=== PATIENT | male | born 1940 | race Caucasian/White ===

== ENCOUNTER → 2023-11-20 08:50 | Day surgery (SDC) | payer MEDICARE, BC, SELFPAY ==
[2023-11-20 10:57] VITALS: BMI 27.2
== END ==
LOC: CATH 08:50
PROVIDERS: ATTENDING PHYSICIAN Internal Medicine Cardiovascular Disease; FAMILY PHYSICIAN Internal Medicine Geriatric Medicine; OTHER PHYSICIAN Internal Medicine Cardiovascular Disease
DX: I48.0 Paroxysmal atrial fibrillation (principal); I47.19 Other supraventricular tachycardia; I34.0 Nonrheumatic mitral (valve) insufficiency; I13.0 Hypertensive heart and chronic kidney disease with heart failure and stage 1 through stage 4 chronic kidney disease, or unspecified chronic kidney disease; I50.32 Chronic diastolic (congestive) heart failure; N18.32 Chronic kidney disease, stage 3b; E78.2 Mixed hyperlipidemia; K21.9 Gastro-esophageal reflux disease without esophagitis; Z79.01 Long term (current) use of anticoagulants
CPT/HCPCS: 92960; 93005

== ENCOUNTER → 2023-12-26 09:42 | Outpatient (REF) | payer MEDICARE, BC, SELFPAY ==
[2023-12-26 10:09] LABS: % Basophils 0.6 % (0-2); % Eosinophils 2.9 % (0-6); % Immature Granulocytes 0.3 % (0-0.5); % Lymphocytes 19.6 % (20.5-51.1); % Monocytes 13.4 % (1.7-9.3); % Neutrophils 63.2 % (42.2-75.2); Absolute Eosinophils 0.2 10^3/uL (0-0.7); Absolute Lymphocytes 1.3 10^3/uL (1.2-3.4); Absolute Monocytes 0.9 10^3/uL (0.1-0.6); Absolute Neutrophils 4.2 10^3/uL (1.4-6.5); Hematocrit 35.3 % (39.0-52.0); Mean Corp Hgb Conc. 31.2 g/dL (33.0-37.0); Mean Corpuscular Hgb 30.4 pg (27.0-31.0); Mean Corpuscular Volume 97.5 fL (80.0-94.0); Mean Platelet Volume 10.8 fL (7.4-10.4); Nucleated Red Blood Cells % 0 % (-); Platelet Count 175 10^3/uL (130-400); Red Blood Cell Count 3.62 10^6/uL (4.70-6.10); Red Cell Dist. Width 16.8 % (11.5-14.5); White Blood Cell Count 6.6 10^3/uL (4.8-10.8)
[2023-12-26 11:00] LABS: ALT (SGPT) 14 U/L (0-50); AST (SGOT) 19 U/L (17-59); Albumin 3.6 g/dl (3.5-5.0); Alkaline Phosphatase 63 U/L (38-126); Blood Urea Nitrogen 41 mg/dl (9-20); Calcium 9.3 mg/dl (8.4-10.2); Carbon Dioxide 27 mmol/L (22-30); Chloride 104 mmol/L (98-107); Glucose 71 mg/dl (70-99); HDL Cholesterol 60 mg/dl; Iron 138 ug/dl (49-181); LDL Cholesterol, Calculated 62 mg/dl; Potassium 4.6 mmol/L (3.5-5.1); Sodium 140 mmol/L (135-145); Total Bilirubin 0.4 mg/dl (0.2-1.3); Total Cholesterol 149 mg/dl (50-199); Total Protein 6.3 g/dl (6.3-8.2); Triglyceride 135 mg/dl (10-149); Very Low Density Lipoprotein 27 mg/dl (0-30); eGFR 43.02
[2023-12-26 11:09] LABS: Percent Saturation 43 % (20-50); Total Iron Binding Capacity 318 ug/dl (261-462)
[2023-12-26 11:21] LABS: Ferritin 37.1 ng/ml (17.9-464.0)
== END ==
LOC: REG 09:42
PROVIDERS: ATTENDING PHYSICIAN Internal Medicine Geriatric Medicine
DX: E78.2 Mixed hyperlipidemia (principal); I10 Essential (primary) hypertension; E55.9 Vitamin D deficiency, unspecified; N20.0 Calculus of kidney; J45.20 Mild intermittent asthma, uncomplicated; K21.9 Gastro-esophageal reflux disease without esophagitis; G47.00 Insomnia, unspecified; I50.32 Chronic diastolic (congestive) heart failure; R00.2 Palpitations; Z13.31 Encounter for screening for depression; R94.4 Abnormal results of kidney function studies; N40.0 Benign prostatic hyperplasia without lower urinary tract symptoms; I48.0 Paroxysmal atrial fibrillation; E53.8 Deficiency of other specified B group vitamins
CPT/HCPCS: 36415; 80053; 80061; 82728; 83540; 83550; 85025

== ENCOUNTER → 2024-01-10 08:02 | Outpatient (REF) | payer MEDICARE, BC, SELFPAY | LOC: DHCBC/DCA 08:02 | PROVIDERS: ATTENDING PHYSICIAN Nurse Practitioner; FAMILY PHYSICIAN Internal Medicine Geriatric Medicine | DX: I48.0 Paroxysmal atrial fibrillation (principal) | CPT/HCPCS: 78452; 93017; A9500; J2785 ==

== ENCOUNTER → 2024-02-14 11:10 | Outpatient (REF) | payer MEDICARE, BC, SELFPAY ==
[2024-02-14 20:02] LABS: Urine Albumin Trace (Neg - Trace); Urine Bilirubin Negative (Negative); Urine Character Clear (Clear); Urine Glucose Negative (Negative); Urine Ketone Negative (Negative); Urine Leukocyte 2+ (Negative); Urine Nitrite Negative (Negative); Urine Occult Blood 4+ (Negative); Urine Specific Gravity 1.005 (<1.030); Urine Urobilinogen Negative (Neg - 1+)
[2024-02-14 20:20] LABS: Urine Red Blood Cell 16-20 /HPF (0-2); Urine White Cell 90-100 /HPF (0-5)
[2024-02-14 20:21] LABS: Urine Bacteria Few (Negative)
== END ==
LOC: DHCBS MAIN 11:10
PROVIDERS: ATTENDING PHYSICIAN Internal Medicine Cardiovascular Disease; FAMILY PHYSICIAN Internal Medicine Geriatric Medicine; REFERRING PHYSICIAN Specialist
DX: I34.0 Nonrheumatic mitral (valve) insufficiency (principal); N39.0 Urinary tract infection, site not specified
CPT/HCPCS: 81003; 81015; 87086; 93306

== ENCOUNTER → 2024-02-19 09:52 | Outpatient (REF) | payer MEDICARE, BC, SELFPAY ==
[2024-02-19 11:17] LABS: % Basophils 0.5 % (0-2); % Eosinophils 2.3 % (0-6); % Immature Granulocytes 0.4 % (0-0.5); % Lymphocytes 21.3 % (20.5-51.1); % Monocytes 11.2 % (1.7-9.3); % Neutrophils 64.3 % (42.2-75.2); Absolute Eosinophils 0.2 10^3/uL (0-0.7); Absolute Lymphocytes 1.6 10^3/uL (1.2-3.4); Absolute Monocytes 0.9 10^3/uL (0.1-0.6); Absolute Neutrophils 4.9 10^3/uL (1.4-6.5); Hematocrit 37.4 % (39.0-52.0); Hemoglobin 12.2 g/dL (13.0-18.0); Mean Corp Hgb Conc. 32.6 g/dL (33.0-37.0); Mean Corpuscular Hgb 32.2 pg (27.0-31.0); Mean Corpuscular Volume 98.7 fL (80.0-94.0); Mean Platelet Volume 10.3 fL (7.4-10.4); Nucleated Red Blood Cells % 0 % (-); Platelet Count 162 10^3/uL (130-400); Red Blood Cell Count 3.79 10^6/uL (4.70-6.10); Red Cell Dist. Width 15.6 % (11.5-14.5); White Blood Cell Count 7.7 10^3/uL (4.8-10.8)
[2024-02-19 12:43] LABS: ALT (SGPT) 15 U/L (0-50); AST (SGOT) 20 U/L (17-59); Albumin 4.3 g/dl (3.5-5.0); Alkaline Phosphatase 68 U/L (38-126); Blood Urea Nitrogen 31 mg/dl (9-20); Calcium 8.8 mg/dl (8.4-10.2); Carbon Dioxide 30 mmol/L (22-30); Chloride 101 mmol/L (98-107); Glucose 89 mg/dl (70-99); HDL Cholesterol 61 mg/dl; Iron 91 ug/dl (49-181); LDL Cholesterol, Calculated 67 mg/dl; Potassium 3.6 mmol/L (3.5-5.1); Sodium 137 mmol/L (135-145); Total Bilirubin 0.6 mg/dl (0.2-1.3); Total Cholesterol 171 mg/dl (50-199); Total Protein 6.7 g/dl (6.3-8.2); Triglyceride 216 mg/dl (10-149); Very Low Density Lipoprotein 43 mg/dl (0-30); eGFR 32.91
[2024-02-19 12:52] LABS: Percent Saturation 31 % (20-50); Total Iron Binding Capacity 291 ug/dl (261-462)
[2024-02-19 14:05] LABS: Free T4 0.95 ng/dl (0.78-2.19); Vitamin D, 25-OH*** 37.1 ng/mL (30-80)
[2024-02-19 14:22] LABS: Ferritin 57.2 ng/ml (17.9-464.0)
== END ==
LOC: REG 09:52
PROVIDERS: ATTENDING PHYSICIAN Internal Medicine Cardiovascular Disease; FAMILY PHYSICIAN Internal Medicine Geriatric Medicine; REFERRING PHYSICIAN Specialist
DX: E78.2 Mixed hyperlipidemia (principal); I10 Essential (primary) hypertension; E55.9 Vitamin D deficiency, unspecified; N20.0 Calculus of kidney; M81.0 Age-related osteoporosis without current pathological fracture; R00.0 Tachycardia, unspecified; J45.20 Mild intermittent asthma, uncomplicated; K21.9 Gastro-esophageal reflux disease without esophagitis; G47.00 Insomnia, unspecified; I50.32 Chronic diastolic (congestive) heart failure; Z13.31 Encounter for screening for depression; R94.4 Abnormal results of kidney function studies; N40.0 Benign prostatic hyperplasia without lower urinary tract symptoms; I48.0 Paroxysmal atrial fibrillation; E53.8 Deficiency of other specified B group vitamins
CPT/HCPCS: 36415; 80053; 80061; 82306; 82728; 83540; 83550; 84439; 84443; 85025

== ENCOUNTER → 2024-02-22 10:17 | Outpatient (REF) | payer MEDICARE, BC, SELFPAY | LOC: RAD 10:17 | PROVIDERS: ATTENDING PHYSICIAN Internal Medicine Cardiovascular Disease; FAMILY PHYSICIAN Internal Medicine Geriatric Medicine | DX: I48.0 Paroxysmal atrial fibrillation (principal) | CPT/HCPCS: 71046 ==

== ENCOUNTER → 2024-03-06 10:16 | Outpatient (REF) | payer MEDICARE, BC, SELFPAY ==
[2024-03-06 11:19] LABS: % Basophils 0.2 % (0-2); % Eosinophils 0.9 % (0-6); % Immature Granulocytes 0.9 % (0-0.5); % Monocytes 12.6 % (1.7-9.3); % Neutrophils 72.4 % (42.2-75.2); Absolute Eosinophils 0.1 10^3/uL (0-0.7); Absolute Immature Granulocytes 0.1 10^3/uL (0-0.05); Absolute Lymphocytes 1.4 10^3/uL (1.2-3.4); Absolute Monocytes 1.4 10^3/uL (0.1-0.6); Absolute Neutrophils 7.9 10^3/uL (1.4-6.5); Hematocrit 37.5 % (39.0-52.0); Hemoglobin 12.5 g/dL (13.0-18.0); Mean Corp Hgb Conc. 33.3 g/dL (33.0-37.0); Mean Corpuscular Hgb 32.1 pg (27.0-31.0); Mean Corpuscular Volume 96.4 fL (80.0-94.0); Mean Platelet Volume 10.7 fL (7.4-10.4); Nucleated Red Blood Cells % 0 % (-); Platelet Count 190 10^3/uL (130-400); Red Blood Cell Count 3.89 10^6/uL (4.70-6.10); Red Cell Dist. Width 15.5 % (11.5-14.5); White Blood Cell Count 10.9 10^3/uL (4.8-10.8)
[2024-03-06 12:02] LABS: Urine Albumin 1+ (Neg - Trace); Urine Bilirubin Negative (Negative); Urine Character Very Cloudy (Clear); Urine Glucose Negative (Negative); Urine Ketone Negative (Negative); Urine Leukocyte 2+ (Negative); Urine Nitrite Negative (Negative); Urine Occult Blood 2+ (Negative); Urine Urobilinogen Negative (Neg - 1+)
[2024-03-06 12:09] LABS: Urine Bacteria Few (Negative); Urine Red Blood Cell 0-2 /HPF (0-2); Urine Squamous Cell 0-2 /LPF (Few); Urine White Cell 50-60 /HPF (0-5)
[2024-03-06 12:33] LABS: ALT (SGPT) 22 U/L (0-50); AST (SGOT) 23 U/L (17-59); Albumin 4.1 g/dl (3.5-5.0); Alkaline Phosphatase 84 U/L (38-126); Blood Urea Nitrogen 34 mg/dl (9-20); Calcium 9.7 mg/dl (8.4-10.2); Carbon Dioxide 29 mmol/L (22-30); Chloride 98 mmol/L (98-107); Glucose 93 mg/dl (70-99); HDL Cholesterol 75 mg/dl; Iron 40 ug/dl (49-181); LDL Cholesterol, Calculated 60 mg/dl; Sodium 134 mmol/L (135-145); Total Bilirubin 0.5 mg/dl (0.2-1.3); Total Cholesterol 162 mg/dl (50-199); Total Protein 6.7 g/dl (6.3-8.2); Triglyceride 139 mg/dl (10-149); Very Low Density Lipoprotein 27 mg/dl (0-30); eGFR 37.35
[2024-03-06 12:46] LABS: Percent Saturation 14 % (20-50); Total Iron Binding Capacity 268 ug/dl (261-462)
[2024-03-06 12:51] LABS: Free T4 1.26 ng/dl (0.78-2.19); Vitamin D, 25-OH*** 42.6 ng/mL (30-80)
[2024-03-06 13:04] LABS: TSH 7.57 uIU/ml (0.47-4.68)
== END ==
LOC: REG 10:16
PROVIDERS: ATTENDING PHYSICIAN Internal Medicine Geriatric Medicine
DX: E78.2 Mixed hyperlipidemia (principal); I10 Essential (primary) hypertension; E55.9 Vitamin D deficiency, unspecified; N20.0 Calculus of kidney; M81.0 Age-related osteoporosis without current pathological fracture; R00.0 Tachycardia, unspecified; J45.20 Mild intermittent asthma, uncomplicated; K21.9 Gastro-esophageal reflux disease without esophagitis; G47.00 Insomnia, unspecified; I50.32 Chronic diastolic (congestive) heart failure; R00.2 Palpitations; Z13.31 Encounter for screening for depression; R94.4 Abnormal results of kidney function studies; N40.0 Benign prostatic hyperplasia without lower urinary tract symptoms; I48.0 Paroxysmal atrial fibrillation; E53.8 Deficiency of other specified B group vitamins
CPT/HCPCS: 36415; 80053; 80061; 81003; 81015; 82306; 82728; 83540; 83550; 84439; 84443; 85025

== ENCOUNTER → 2024-03-13 17:13 | Outpatient (REF) | payer MEDICARE, BC, SELFPAY ==
[2024-03-13 17:51] LABS: Urine Albumin 1+ (Neg - Trace); Urine Bilirubin Negative (Negative); Urine Character Very Cloudy (Clear); Urine Glucose Negative (Negative); Urine Ketone Negative (Negative); Urine Leukocyte 2+ (Negative); Urine Nitrite Negative (Negative); Urine Occult Blood 2+ (Negative); Urine Urobilinogen Negative (Neg - 1+); Urine pH 6.5 (5.0-9.0)
[2024-03-13 18:02] LABS: Urine Squamous Cell 0-2 /LPF (Few)
[2024-03-13 18:03] LABS: Urine Bacteria Few (Negative); Urine White Cell >100 /HPF (0-5)
== END ==
LOC: CLAB 17:13
PROVIDERS: ATTENDING PHYSICIAN Specialist; FAMILY PHYSICIAN Internal Medicine Geriatric Medicine
DX: N39.0 Urinary tract infection, site not specified (principal)
CPT/HCPCS: 81003; 81015; 87086

== ENCOUNTER → 2024-03-18 08:39 | Outpatient (REF) | payer MEDICARE, BC, SELFPAY | LOC: RCS 08:39 | PROVIDERS: ATTENDING PHYSICIAN Internal Medicine Cardiovascular Disease; FAMILY PHYSICIAN Internal Medicine Geriatric Medicine | DX: I48.0 Paroxysmal atrial fibrillation (principal); I10 Essential (primary) hypertension; I50.32 Chronic diastolic (congestive) heart failure; I34.0 Nonrheumatic mitral (valve) insufficiency | CPT/HCPCS: 93306; 93356 ==

== ENCOUNTER → 2024-03-26 10:27 | Outpatient (REF) | payer MEDICARE, BC, SELFPAY ==
[2024-03-26 11:29] LABS: Urine Albumin Trace (Neg - Trace); Urine Bilirubin Negative (Negative); Urine Character Slightly Cloudy (Clear); Urine Glucose Negative (Negative); Urine Ketone Negative (Negative); Urine Leukocyte 2+ (Negative); Urine Nitrite Negative (Negative); Urine Occult Blood 1+ (Negative); Urine Urobilinogen Negative (Neg - 1+); Urine pH 6.5 (5.0-9.0)
[2024-03-26 12:28] LABS: Urine Bacteria Moderate (Negative); Urine White Cell 50-60 /HPF (0-5)
[2024-03-28 15:53] LABS: 24 Hour Urine Total Volume Random mL; Albumin 3.87 g/dL (3.75-5.01); Alpha 1 Globulin 0.35 g/dL (0.19-0.46); Free Kappa Light Chains,Quant 28.97 mg/L (3.30-19.40); Free Lambda Light Chains,Quant 21.61 mg/L (5.71-26.30); IgA 275 mg/dL (68-408); IgG 721 mg/dL (768-1632); IgM 52 mg/dL (35-263); Immunofixation Electrophoresis IFE Done; Kappa/Lambda Fr Light Ratio 1.34 (0.26-1.65); Total Protein-Electrophoresis 6.9 g/dL (6.3-8.2); Urine Collection Length Random hr; Urine Free Lambda Light Chains 7.51 mg/L (0.00-3.79)
== END ==
LOC: REG 10:27
PROVIDERS: Urology; ATTENDING PHYSICIAN Internal Medicine Cardiovascular Disease; FAMILY PHYSICIAN Internal Medicine Geriatric Medicine
DX: I50.32 Chronic diastolic (congestive) heart failure (principal); N39.0 Urinary tract infection, site not specified
CPT/HCPCS: 81003; 81015; 82784; 83521; 84155; 84156; 84165; 86334; 86335; 87086

== ENCOUNTER → 2024-04-03 11:00 | Outpatient (REF) | payer MEDICARE, BC, SELFPAY ==
[2024-04-03 12:20] LABS: % Basophils 0.5 % (0-2); % Eosinophils 0.6 % (0-6); % Immature Granulocytes 0.9 % (0-0.5); % Lymphocytes 15.7 % (20.5-51.1); % Monocytes 7.7 % (1.7-9.3); % Neutrophils 74.6 % (42.2-75.2); Absolute Eosinophils 0.1 10^3/uL (0-0.7); Absolute Immature Granulocytes 0.1 10^3/uL (0-0.05); Absolute Lymphocytes 1.3 10^3/uL (1.2-3.4); Absolute Monocytes 0.6 10^3/uL (0.1-0.6); Absolute Neutrophils 6.1 10^3/uL (1.4-6.5); Hematocrit 35.2 % (39.0-52.0); Hemoglobin 11.3 g/dL (13.0-18.0); Mean Corp Hgb Conc. 32.1 g/dL (33.0-37.0); Mean Corpuscular Hgb 32.7 pg (27.0-31.0); Mean Corpuscular Volume 101.7 fL (80.0-94.0); Mean Platelet Volume 10.4 fL (7.4-10.4); Nucleated Red Blood Cells % 0 % (-); Platelet Count 189 10^3/uL (130-400); Red Blood Cell Count 3.46 10^6/uL (4.70-6.10); White Blood Cell Count 8.2 10^3/uL (4.8-10.8)
[2024-04-03 12:58] LABS: ALT (SGPT) 20 U/L (0-50); AST (SGOT) 24 U/L (17-59); Albumin 4.1 g/dl (3.5-5.0); Alkaline Phosphatase 78 U/L (38-126); Blood Urea Nitrogen 29 mg/dl (9-20); Calcium 9.3 mg/dl (8.4-10.2); Carbon Dioxide 27 mmol/L (22-30); Chloride 104 mmol/L (98-107); Glucose 95 mg/dl (70-99); Iron 98 ug/dl (49-181); Potassium 4.3 mmol/L (3.5-5.1); Sodium 140 mmol/L (135-145); Total Bilirubin 0.6 mg/dl (0.2-1.3); Total Protein 6.6 g/dl (6.3-8.2); eGFR 46.48
[2024-04-03 13:08] LABS: Percent Saturation 34 % (20-50); Total Iron Binding Capacity 284 ug/dl (261-462)
[2024-04-03 13:09] LABS: TSH 7.06 uIU/ml (0.47-4.68)
== END ==
LOC: REG 11:00
PROVIDERS: ATTENDING PHYSICIAN Internal Medicine Geriatric Medicine
DX: I10 Essential (primary) hypertension (principal); D64.9 Anemia, unspecified
CPT/HCPCS: 36415; 80053; 82728; 83540; 83550; 84443; 85025

== ENCOUNTER → 2024-04-10 06:23 | Day surgery (SDC) | payer MEDICARE, BC, SELFPAY | LOC: GI 06:23 | PROVIDERS: ATTENDING PHYSICIAN Internal Medicine Gastroenterology; FAMILY PHYSICIAN Internal Medicine Geriatric Medicine | DX: D50.0 Iron deficiency anemia secondary to blood loss (chronic) (principal); R12 Heartburn; R19.5 Other fecal abnormalities; Z79.01 Long term (current) use of anticoagulants | CPT/HCPCS: 43235 ==

== ENCOUNTER → 2024-04-15 09:36 | Outpatient (REF) | payer MEDICARE, BC, SELFPAY | LOC: RAD 09:36 | PROVIDERS: ATTENDING PHYSICIAN Internal Medicine Cardiovascular Disease; FAMILY PHYSICIAN Internal Medicine Geriatric Medicine | DX: I48.0 Paroxysmal atrial fibrillation (principal); I42.9 Cardiomyopathy, unspecified; I50.32 Chronic diastolic (congestive) heart failure | CPT/HCPCS: 78803; A9538 ==

== ENCOUNTER → 2024-05-05 08:49 | Outpatient (REF) | payer MEDICARE, BC, SELFPAY ==
[2024-05-05 09:55] LABS: % Basophils 0.4 % (0-2); % Eosinophils 1.7 % (0-6); % Immature Granulocytes 1.1 % (0-0.5); % Lymphocytes 25.5 % (20.5-51.1); % Monocytes 10.6 % (1.7-9.3); % Neutrophils 60.7 % (42.2-75.2); Absolute Eosinophils 0.1 10^3/uL (0-0.7); Absolute Immature Granulocytes 0.1 10^3/uL (0-0.05); Absolute Lymphocytes 1.8 10^3/uL (1.2-3.4); Absolute Monocytes 0.8 10^3/uL (0.1-0.6); Absolute Neutrophils 4.4 10^3/uL (1.4-6.5); Hematocrit 36.4 % (39.0-52.0); Hemoglobin 11.7 g/dL (13.0-18.0); Mean Corp Hgb Conc. 32.1 g/dL (33.0-37.0); Mean Corpuscular Hgb 33.5 pg (27.0-31.0); Mean Corpuscular Volume 104.3 fL (80.0-94.0); Nucleated Red Blood Cells % 0 % (-); Platelet Count 175 10^3/uL (130-400); Red Blood Cell Count 3.49 10^6/uL (4.70-6.10); Red Cell Dist. Width 14.7 % (11.5-14.5); White Blood Cell Count 7.2 10^3/uL (4.8-10.8)
[2024-05-05 10:24] LABS: ALT (SGPT) 20 U/L (0-50); AST (SGOT) 23 U/L (17-59); Albumin 4.3 g/dl (3.5-5.0); Alkaline Phosphatase 77 U/L (38-126); Blood Urea Nitrogen 31 mg/dl (9-20); Calcium 9.7 mg/dl (8.4-10.2); Carbon Dioxide 28 mmol/L (22-30); Chloride 104 mmol/L (98-107); Glucose 90 mg/dl (70-99); HDL Cholesterol 79 mg/dl; LDL Cholesterol, Calculated 69 mg/dl; Potassium 4.2 mmol/L (3.5-5.1); Sodium 140 mmol/L (135-145); Total Bilirubin 0.4 mg/dl (0.2-1.3); Total Cholesterol 180 mg/dl (50-199); Total Protein 6.5 g/dl (6.3-8.2); Triglyceride 163 mg/dl (10-149); Very Low Density Lipoprotein 32 mg/dl (0-30); eGFR 50.18
[2024-05-05 10:29] LABS: NT-proBNP 364 pg/ml
[2024-05-05 10:45] LABS: Vitamin D, 25-OH*** 39.3 ng/mL (30-80)
[2024-05-05 10:59] LABS: TSH 9.04 uIU/ml (0.47-4.68)
== END ==
LOC: REG 08:49
PROVIDERS: ATTENDING PHYSICIAN Internal Medicine Gastroenterology; FAMILY PHYSICIAN Internal Medicine Geriatric Medicine
DX: D64.9 Anemia, unspecified (principal); Z74.09 Other reduced mobility; E78.2 Mixed hyperlipidemia; I10 Essential (primary) hypertension; E55.9 Vitamin D deficiency, unspecified; N20.0 Calculus of kidney; M81.0 Age-related osteoporosis without current pathological fracture
CPT/HCPCS: 36415; 80053; 80061; 82306; 83880; 84443; 85025

== ENCOUNTER → 2024-05-07 13:13 | Outpatient (REF) | payer MEDICARE, BC, SELFPAY | LOC: HWRAD 13:13 | PROVIDERS: ATTENDING PHYSICIAN Specialist; FAMILY PHYSICIAN Internal Medicine Geriatric Medicine | DX: M54.16 Radiculopathy, lumbar region (principal) | CPT/HCPCS: 72131 ==

== ENCOUNTER → 2024-05-23 16:08 | Outpatient (REF) | payer MEDICARE, BC, SELFPAY ==
[2024-05-23 18:24] LABS: TSH 4.59 uIU/ml (0.47-4.68)
== END ==
LOC: REG 16:08
PROVIDERS: ATTENDING PHYSICIAN Internal Medicine Geriatric Medicine
DX: E78.2 Mixed hyperlipidemia (principal); I10 Essential (primary) hypertension; E55.9 Vitamin D deficiency, unspecified; N20.0 Calculus of kidney; M81.0 Age-related osteoporosis without current pathological fracture; R00.0 Tachycardia, unspecified; J45.20 Mild intermittent asthma, uncomplicated; K21.9 Gastro-esophageal reflux disease without esophagitis; G47.00 Insomnia, unspecified; I50.32 Chronic diastolic (congestive) heart failure; R00.2 Palpitations; Z13.89 Encounter for screening for other disorder; R94.4 Abnormal results of kidney function studies; N40.0 Benign prostatic hyperplasia without lower urinary tract symptoms; I48.0 Paroxysmal atrial fibrillation; E53.8 Deficiency of other specified B group vitamins; E03.2 Hypothyroidism due to medicaments and other exogenous substances
CPT/HCPCS: 36415; 84443

== ENCOUNTER 2024-05-27 08:21 | Day surgery (SDC) | payer MEDICARE, BC, SELFPAY ==
--- NOTE | 2024-05-27 11:06 | ITS.CL.CARDI ---
[employer] - Cardioversion
Cardioversion
Procedure Report:
Procedure: Direct current electrical cardioversion
Pre-operative diagnosis: Persistent atrial flutter
Post-operative diagnosis: Persistent atrial flutter status post DC cardioversion to sinus rhythm
Anesthesia: MAC
Attending Physician: Mik Soriano MD
Procedure Description: The patient was brought to the electrophysiology laboratory in the fasting state. Adherence to anticoagulation regimen was confirmed. Informed consent was obtained from the patient prior to the start of the procedure.
Electrodes were placed on the patient and connected to an external defibrillator. Monitoring of blood pressure, ECG tracings, and pulse oximetry was initiated. The pads were applied to the patient in the anterior and posterior positions. The patient
was sedated by the anesthesiologist. A 50 joule biphasic synchronized shock was delivered to the patient under MAC anesthesia. Sinus rhythm was successfully restored. The patient recovered uneventfully from MAC anesthesia. There were no immediate
post-procedure complications. The patient left the lab in good condition. The attending physician was present throughout the entire procedure.
Impression: Successful direct current cardioversion with bahai of sinus rhythm after one 50 joule biphasic synchronized shock.
== END 2024-05-27 11:32 | disposition home or self-care (01) ==
LOC: CATH 08:21
PROVIDERS: ATTENDING PHYSICIAN Nuclear Medicine Nuclear Cardiology; FAMILY PHYSICIAN Internal Medicine Geriatric Medicine; OTHER PHYSICIAN Internal Medicine Cardiovascular Disease
DX: I48.92 Unspecified atrial flutter (principal); I48.0 Paroxysmal atrial fibrillation; I13.0 Hypertensive heart and chronic kidney disease with heart failure and stage 1 through stage 4 chronic kidney disease, or unspecified chronic kidney disease; I50.32 Chronic diastolic (congestive) heart failure; N18.30 Chronic kidney disease, stage 3 unspecified; K21.9 Gastro-esophageal reflux disease without esophagitis; E78.5 Hyperlipidemia, unspecified; G47.33 Obstructive sleep apnea (adult) (pediatric); Z79.01 Long term (current) use of anticoagulants
CPT/HCPCS: 92960; 93005

== ENCOUNTER → 2024-06-02 08:54 | Outpatient (REF) | payer MEDICARE, BC, SELFPAY ==
[2024-06-02 11:05] LABS: % Basophils 0.4 % (0-2); % Eosinophils 2.5 % (0-6); % Immature Granulocytes 1.1 % (0-0.5); % Lymphocytes 18.1 % (20.5-51.1); % Monocytes 10.9 % (1.7-9.3); Absolute Eosinophils 0.2 10^3/uL (0-0.7); Absolute Immature Granulocytes 0.1 10^3/uL (0-0.05); Absolute Lymphocytes 1.5 10^3/uL (1.2-3.4); Absolute Monocytes 0.9 10^3/uL (0.1-0.6); Absolute Neutrophils 5.7 10^3/uL (1.4-6.5); Hematocrit 34.4 % (39.0-52.0); Hemoglobin 11.5 g/dL (13.0-18.0); Mean Corp Hgb Conc. 33.4 g/dL (33.0-37.0); Mean Corpuscular Hgb 34.2 pg (27.0-31.0); Mean Corpuscular Volume 102.4 fL (80.0-94.0); Mean Platelet Volume 10.2 fL (7.4-10.4); Nucleated Red Blood Cells % 0 % (-); Platelet Count 207 10^3/uL (130-400); Red Blood Cell Count 3.36 10^6/uL (4.70-6.10); Red Cell Dist. Width 13.7 % (11.5-14.5); White Blood Cell Count 8.4 10^3/uL (4.8-10.8)
[2024-06-02 11:24] LABS: NT-proBNP 503 pg/ml
[2024-06-02 12:32] LABS: ALT (SGPT) 20 U/L (0-50); AST (SGOT) 25 U/L (17-59); Albumin 4.3 g/dl (3.5-5.0); Alkaline Phosphatase 74 U/L (38-126); Blood Urea Nitrogen 31 mg/dl (9-20); Calcium 9.6 mg/dl (8.4-10.2); Carbon Dioxide 26 mmol/L (22-30); Chloride 103 mmol/L (98-107); Glucose 88 mg/dl (70-99); HDL Cholesterol 64 mg/dl; LDL Cholesterol, Calculated 70 mg/dl; Potassium 4.7 mmol/L (3.5-5.1); Sodium 138 mmol/L (135-145); Total Bilirubin 0.6 mg/dl (0.2-1.3); Total Cholesterol 177 mg/dl (50-199); Total Protein 6.5 g/dl (6.3-8.2); Triglyceride 217 mg/dl (10-149); Very Low Density Lipoprotein 43 mg/dl (0-30); eGFR 54.85
[2024-06-02 13:03] LABS: Free T4 1.58 ng/dl (0.78-2.19); Vitamin D, 25-OH*** 41.6 ng/mL (30-80)
== END ==
LOC: REG 08:54
PROVIDERS: ATTENDING PHYSICIAN Internal Medicine Geriatric Medicine
DX: Z74.09 Other reduced mobility (principal); E78.2 Mixed hyperlipidemia; I10 Essential (primary) hypertension; E55.9 Vitamin D deficiency, unspecified; N20.0 Calculus of kidney; M81.0 Age-related osteoporosis without current pathological fracture; R00.0 Tachycardia, unspecified; R94.4 Abnormal results of kidney function studies; N40.0 Benign prostatic hyperplasia without lower urinary tract symptoms; I48.0 Paroxysmal atrial fibrillation; E53.8 Deficiency of other specified B group vitamins; E03.2 Hypothyroidism due to medicaments and other exogenous substances; Z79.899 Other long term (current) drug therapy
CPT/HCPCS: 36415; 80053; 80061; 82306; 83880; 84439; 85025

== ENCOUNTER 2024-06-20 15:34 | Emergency (ER) | payer MEDICARE, BC, SELFPAY ==
[2024-06-20 15:42] VITALS: BP 159/78
--- NOTE | 2024-06-20 17:55 | EDRN ---
Dr. Patricia in room w /pt at this time/
--- NOTE | 2024-06-20 18:06 | EDRN ---
Pt was able to get up out of w/c and walk w/ very small steps from inside P2 to door jam of P1 and turn around and walk back and sit back down w/out assist of this RN or a walker.
[2024-06-20 18:12] VITALS: BP 182/88
--- NOTE | 2024-06-20 18:14 | ED.GENMED ---
History of Present Illness
General
Chief Complaint: Musculo-Skeletal Complaint
Source: patient
Time Seen by Provider: 06/20/24 17:37
History of Present Illness
History of Present Illness:
84-year-old male presents after a fall. Patient was getting his mail when he tripped going over a curb. He initially had significant low back pain. Patient has history of chronic back pain for which he has been receiving epidural injections.
Patient is pain has improved while waiting here in the emergency room. He denies any head injury. He denies any nausea or vomiting at this time.
Past History
Past History
ED Past Medical History: HTN, Hypercholesterolemia and Other (PNA, GI bleeding due to Ulcers, renal calculus, Autoimmune disorder)
ED Past Surgical History: Orthopedic and Urological
Patient has exhibited threatening behavior?: No
PSI?: No
Social History
Tobacco: Non-smoker
Alcohol: Occasional
Personal:
Living: with family
Family History
Family History: Negative Diabetes, Hypertension or CAD
Phy Exam
Physical Exam
Physical Exam:
General: Awake, Alert, appears stated age but in no distress
Vitals: unremarkable
Head: Atraumatic
Eyes: Pupils equal, EOMI
Throat: Airway intact, no exudates
Neck: Trachea midline
Lungs: Clear and equal b/l
Heart: Regular rate, no murmurs
Abd: Soft, Nontender, No pulsatile mass
Back: No midline tenderness to palpation
Neuro: Grossly nonfocal
Skin: Warm, dry, no rash
Extremities: pulses equal b/l, no edema
Course
Orders/Labs/Results
Orders:
Orders
06/20/24 15:45
CR Lumbar Spine Comp Min 4 Vw* Urgent
Comment:
Reason For Exam: injury
Vital Signs
Initial and Last Documented VS:
Initial Vital Signs
Temp Pulse Resp BP Pulse Ox
98.3 F 73 18 159/78 98
06/20/24 15:42 06/20/24 15:42 06/20/24 15:42 06/20/24 15:42 06/20/24 15:42
Last Documented Vital Signs
Temp Pulse Resp BP Pulse Ox
98.3 F 68 16 182/88 100
06/20/24 15:42 06/20/24 18:12 06/20/24 18:12 06/20/24 18:12 06/20/24 18:12
MDM/Problems Addressed
Differential Diagnosis Includes:
Compression fracture, muscle spasm, contusion
MDM/Problems Addressed:
Patient's lumbar spine films are unremarkable. Clinically is feeling much better. He has no focal weakness. Patient stable for discharge home with analgesia.
*Radiology
Radiology exam reviewed: preliminary read by ED provider (Personally viewed the patient's lumbar spine films and see no acute disease)
*Pulse Oximetry
Patient hypoxic: no
*Critical Care Note
Total Time (30-74mins, 75-104mins- exclusive of procedures): Not Applicable
ED Attending Note
-
Portions of this chart may have been created with voice recognition software.� Occasional wrong word or��sound alike� substitutions may have occurred due to the inherent limitations of voice recognition software.
Discharge Plan
Departure
Patient Disposition: Home (Routine Discharge)
Date of Disposition: 06/20/24
Time of Disposition: 18:14
Patient with high blood pressure during this ER visit?: Yes
Condition: Good
Discharge Problem:
mechanical fall, Low back strain
Instructions: Low Back Pain ED
Prescriptions:
New
oxycodone 5 mg tablet
5 mg PO Q6H PRN (Reason: Pain) Qty: 12 0RF
No Action
atorvastatin 10 MG tablet
10 mg PO DAILY
calcium carbonate [Calcium 600] 600 MG tablet
600 mg PO TID
vitamin B complex Tablet
1 tab PO QPM
albuterol sulfate 90 mcg/actuation Hfa Aerosol Inhaler
2 puff INHALATION R Q4HPRN PRN (Reason: sob/wheezing)
PreserVision AREDS-2 250-90-40-1 mg Capsule
1 tab PO BID
amlodipine 2.5 mg Tablet
2.5 mg PO HS
tamsulosin [Flomax] 0.4 mg Capsule
0.8 mg PO HS
pantoprazole [Protonix] 40 mg Tablet,Delayed Release (Dr/Ec)
40 mg PO BID
Saccharomyces boulardii [Florastor] 250 mg Capsule
250 mg PO BID
clobetasol 0.05 % Cream
1 applic TOPICAL DAILYPRN PRN (Reason: body rash)
dutasteride 0.5 mg Capsule
0.5 mg PO DAILY Qty: 0
psyllium husk 0.52 gram Capsule
0.52 g PO DAILYPRN PRN (Reason: constipation)
Prolia 60 mg/mL Syringe
60 mg SC [id number]
methen-sod phos-meth blue-hyos [Urogesic-Blue] 81.6-40.8-0.12 mg Tablet
1 tab PO QID
prednisone 2 mg Tablet,Delayed Release (Dr/Ec)
2 mg PO Q48H
prednisone 1 mg Tablet
3 mg PO Q48H
amiodarone 200 mg tablet
200 mg PO DAILY Qty: 30 11RF
Eliquis 2.5 mg Tablet
2.5 mg PO BID 30 Days Qty: 60 0RF
diazepam [Valium] 2 mg tablet
5 mg PO DAILY
B Complex Tablet Extended Release
1 tab PO DAILY
fexofenadine [Miya] 60 mg Tablet
60 mg PO BID PRN (Reason: itching)
fluticasone propion-salmeterol [Advair Diskus] 500-50 mcg/dose Blister With Device
1 inh INHALATION BID PRN (Reason: wheezing)
magnesium 200 mg Tablet
200 mg PO DAILY
furosemide [Lasix] 40 mg tablet
20 mg PO DAILY PRN (Reason: Fluid Retention/Swelling)
cranberry extract [Ellura] 200 mg Capsule
200 mg PO DAILY
Referrals:
UNKNOWN - PT DOES,NOT KNOW [Family Provider] -
Activity Restrictions/Additional Instructions:
[id number]
[address]
[place] [id number]
Follow up with your pain management doctor
Interventions
Interventions:
*Risk Screen - Suicide Last Done: 06/20/24 15:42
*General Assessment Last Done: 06/20/24 15:42
*Neglect/Abuse Screening Last Done: 06/20/24 15:42
ED- Fall Risk Assessment Last Done: 06/20/24 17:30
*ED COVID-19 Vaccine History Last Done: 06/20/24 17:23
*Nursing Disposition Last Done: 06/20/24 18:32
ED-Musculoskeletal Assessment Last Done: 06/20/24 17:29
Discharge Date and Time
Discharge Date/Time: 06/20/24 18:33
Print Language: DIVEHI
== END 2024-06-20 18:33 | disposition home or self-care (01) ==
LOC: EMR 15:34
PROVIDERS: EMERGENCY PHYSICIAN Emergency Medicine
DX: S39.012A Strain of muscle, fascia and tendon of lower back, initial encounter (principal); W10.1XXA Fall (on)(from) sidewalk curb, initial encounter; Y93.01 Activity, walking, marching and hiking; I10 Essential (primary) hypertension; E78.00 Pure hypercholesterolemia, unspecified; G89.29 Other chronic pain; M54.9 Dorsalgia, unspecified; D89.89 Other specified disorders involving the immune mechanism, not elsewhere classified; Z87.01 Personal history of pneumonia (recurrent); Z87.11 Personal history of peptic ulcer disease; Z87.442 Personal history of urinary calculi
CPT/HCPCS: 99283; 72110

== ENCOUNTER 2024-08-08 09:17 | Day surgery (SDC) | payer MEDICARE, BC, SELFPAY ==
[2024-08-08 10:49] VITALS: BMI 27.7
== END 2024-08-08 11:30 | disposition home or self-care (01) ==
LOC: CATH 09:17
PROVIDERS: ATTENDING PHYSICIAN Internal Medicine Cardiovascular Disease; FAMILY PHYSICIAN Internal Medicine Geriatric Medicine; OTHER PHYSICIAN Internal Medicine Cardiovascular Disease
DX: I48.0 Paroxysmal atrial fibrillation (principal); Z53.09 Procedure and treatment not carried out because of other contraindication; Z79.01 Long term (current) use of anticoagulants
CPT/HCPCS: 93005

== ENCOUNTER → 2024-08-19 09:20 | Outpatient (REF) | payer MEDICARE, BC, SELFPAY ==
[2024-08-19 10:39] LABS: % Basophils 0.4 % (0-2); % Eosinophils 0.8 % (0-6); % Immature Granulocytes 0.9 % (0-0.5); % Lymphocytes 14.8 % (20.5-51.1); % Monocytes 8.5 % (1.7-9.3); % Neutrophils 74.6 % (42.2-75.2); Absolute Eosinophils 0.1 10^3/uL (0-0.7); Absolute Immature Granulocytes 0.1 10^3/uL (0-0.05); Absolute Lymphocytes 1.5 10^3/uL (1.2-3.4); Absolute Monocytes 0.9 10^3/uL (0.1-0.6); Absolute Neutrophils 7.7 10^3/uL (1.4-6.5); Hematocrit 36.3 % (39.0-52.0); Mean Corp Hgb Conc. 33.1 g/dL (33.0-37.0); Mean Corpuscular Hgb 33.9 pg (27.0-31.0); Mean Corpuscular Volume 102.5 fL (80.0-94.0); Nucleated Red Blood Cells % 0 % (-); Platelet Count 192 10^3/uL (130-400); Red Blood Cell Count 3.54 10^6/uL (4.70-6.10); Red Cell Dist. Width 13.7 % (11.5-14.5); White Blood Cell Count 10.3 10^3/uL (4.8-10.8)
[2024-08-19 10:55] LABS: NT-proBNP 312 pg/ml
[2024-08-19 11:01] LABS: ALT (SGPT) 32 U/L (0-50); AST (SGOT) 29 U/L (17-59); Albumin 4.3 g/dl (3.5-5.0); Alkaline Phosphatase 78 U/L (38-126); Blood Urea Nitrogen 25 mg/dl (9-20); Calcium 9.5 mg/dl (8.4-10.2); Carbon Dioxide 24 mmol/L (22-30); Chloride 103 mmol/L (98-107); Glucose 90 mg/dl (70-99); HDL Cholesterol 74 mg/dl; LDL Cholesterol, Calculated 63 mg/dl; Potassium 4.3 mmol/L (3.5-5.1); Sodium 140 mmol/L (135-145); Total Bilirubin 0.5 mg/dl (0.2-1.3); Total Cholesterol 173 mg/dl (50-199); Total Protein 6.6 g/dl (6.3-8.2); Triglyceride 180 mg/dl (10-149); Very Low Density Lipoprotein 36 mg/dl (0-30); eGFR > 60.00
[2024-08-19 11:19] LABS: Free T4 1.54 ng/dl (0.78-2.19); Vitamin D, 25-OH*** 39.6 ng/mL (30-80)
== END ==
LOC: RAD 09:20
PROVIDERS: ATTENDING PHYSICIAN Internal Medicine Cardiovascular Disease; FAMILY PHYSICIAN Internal Medicine Geriatric Medicine
DX: Z79.899 Other long term (current) drug therapy (principal); N18.32 Chronic kidney disease, stage 3b; E78.2 Mixed hyperlipidemia; I10 Essential (primary) hypertension; E55.9 Vitamin D deficiency, unspecified; N20.0 Calculus of kidney; M81.0 Age-related osteoporosis without current pathological fracture; R00.0 Tachycardia, unspecified; J45.20 Mild intermittent asthma, uncomplicated; K21.9 Gastro-esophageal reflux disease without esophagitis; G47.00 Insomnia, unspecified; I50.32 Chronic diastolic (congestive) heart failure; Z13.89 Encounter for screening for other disorder; R00.2 Palpitations; N40.0 Benign prostatic hyperplasia without lower urinary tract symptoms; I48.0 Paroxysmal atrial fibrillation; E53.8 Deficiency of other specified B group vitamins; E03.2 Hypothyroidism due to medicaments and other exogenous substances
CPT/HCPCS: 36415; 71046; 80053; 80061; 82306; 83880; 84439; 84443; 85025

== ENCOUNTER 2024-11-10 09:01 | Day surgery (SDC) | payer MEDICARE, BC, SELFPAY ==
[2024-11-10 11:08] VITALS: BMI 28.6
--- NOTE | 2024-11-10 11:54 | ITS.CL.CARDI ---
[facility] - Cardioversion
Cardioversion
Procedure Report:
Date of Procedure: November 10 2024
Procedure: Cardioversion
Indication: Symptomatic atrial fibrillation
Performing Physician: Fahad Gonzalez DO, FACC
Technique: The patient was brought to the holding area. Signed informed consent was obtained. A time out was called and performed. The patient was anesthetized by the anesthesia service. Anticoagulation status was reviewed and appropriate. R2 pads
were placed anteriorly and posteriorly. A 200 J synchronized biphasic shock restored normal sinus rhythm without significant bradycardia. There were no complications.
Conclusion: Uncomplicated cardioversion from atrial fibrillation to sinus rhythm.
Recommendation: Routine post cardioversion care. 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
== END 2024-11-10 12:05 | disposition home or self-care (01) ==
LOC: CATH 09:01
PROVIDERS: ATTENDING PHYSICIAN Nuclear Medicine Nuclear Cardiology; FAMILY PHYSICIAN Internal Medicine Geriatric Medicine; OTHER PHYSICIAN Internal Medicine Cardiovascular Disease
DX: I48.0 Paroxysmal atrial fibrillation (principal); I13.0 Hypertensive heart and chronic kidney disease with heart failure and stage 1 through stage 4 chronic kidney disease, or unspecified chronic kidney disease; I50.32 Chronic diastolic (congestive) heart failure; N18.32 Chronic kidney disease, stage 3b; I34.0 Nonrheumatic mitral (valve) insufficiency; E78.2 Mixed hyperlipidemia; K21.9 Gastro-esophageal reflux disease without esophagitis; Z79.01 Long term (current) use of anticoagulants
CPT/HCPCS: 92960; 93005

== ENCOUNTER 2024-12-19 07:40 | Day surgery (SDC) | payer MEDICARE, BC, SELFPAY ==
[2024-12-01 10:21] VITALS: BMI 28.7
[2024-12-19] VITALS (15 sets, daily range): BP systolic 132–214; BP diastolic 66–111
[2024-12-19 11:53] LABS: ACT-LR - POC 265 Seconds (116-155)
--- NOTE | 2024-12-19 12:17 | ITS.CL.ABL ---
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
Ablation
Procedure Report:
ELECTROPHYSIOLOGY ABLATION STUDY
DATE:: December 19, 2024�����������������������������REFERRING: Dr. Gonzales Bullock
INDICATION: Paroxysmal supraventricular tachycardia in the form of atrial fibrillation.��Prior history of atypical flutter
HISTORY: See H and P.��As above
ANTIARRHYTHMIC DRUG: Amiodarone
PRE-PROCEDURE SHRUTHI: No intracardiac thrombus and intracardiac ultrasound
PRESENTING RHYTHM: Sinus bradycardia
'TIME-OUT':��called and confirmed.
SEDATION/ANESTHESIA:��provided via the anesthesia department using general anesthesia (LMA).
INTRAVENOUS/ARTERIAL ACCESS:
Right femoral venous - 8Fr
Left femoral venous - 8 Fr, 6 Fr
Ultrasound guidance for bilateral femoral vein access was utilized by me to obtain access with demonstration of normal anatomy
CHADS-VASC Score:
HAS-Bled Score
PROCEDURE:
1.��A decapolar CS catheter was placed within the CS for mapping and pacing.��This was also used as the reference catheter for the 3-D map.
2. The intracardiac ultrasound catheter was positioned in the RA to identify the FO for targeting of transseptal puncture, assist��in identification of the pulmonary vein ostia, monitoring pre and post ablation pulmonary vein flow velocities,
monitoring for 'bubble' formation during RF application as a sign of thermal injury,��and to monitor for pericardial effusion during mapping and ablation procedure.���Left atrial size, LV ejection fraction, and pulmonary vein flows were monitored
pre and post ablation procedure. The other valves were inspected and found to be free of significant regurgitation or stenosis.
3.��Half of the calculated heparin bolus was administered prior to the first transeptal puncture.��Transseptal puncture was performed to diagnose RA and LA pressure so that safety of LA mapping and ablation could be further assessed, and to access
the left atrium and pulmonary veins for mapping and ablation.��This entailed advancing an 17 [place] sheath wire and dilator combination with sheath with dilator into the superior vena cava and withdrawing both (monitoring intracardiac ultrasound,
fluoroscopy and tip pressure) with the tip oriented toward the atrial septum.��The fossa ovalis was engaged (indicated by sudden displacement of the sheath tip as well as tenting of the fossa seen on intracardiac ultrasound).��Left atrial access
required a pass with the Brock[place]rough needle extended.��Left atrial catheter position was confirmed by pressure monitoring (RA mean pressure 8 mm Hg and LA mean presure 14 mm Hg), LA saturation (99%),��as well as fluoroscopy.��The sheath was
advanced over the dilator and positioned in the left atrium.��The remainder of the calculated heparin bolus was administered and heparin was
infused to maintain ACT at 300 -350 seconds throughout the case.
4.��RA pacing was performed via the proximal decapolar poles and LA pacing was performed via the distal decapolr poles.
5. A quadrapolar catheter was first positioned at the His position for His Bundle recording which was tagged via the 3-D Navex sytem, and then passed to the RVA for RV pacing and recording.
6. The ablation catheter was positioned through one of the transeptal seaths and a 20 pole ring mapping catheter was positioned through the second seath into the LA and then the ostia of the LIPV, LSPV, RSPV and the RIPV.��
7.��Next, a 3-D map was created using Navex.���A 3-D reconstructed CT image was compared to the 3-D Navex map to assist in anatomic interpretation, mapping and ablation.��The CT image and the NavX image were fused.
8. Total of 51 lesions were created in the all of and basket pose and the 4 pulmonary veins with rotation and flower pose to the roof posterior wall and floor of the left atrium. This rendered all 4 pulmonary veins as well as left atrial posterior
wall electrically isolated with entrance and exit block. EPS with stim post ablation did not demonstrate any other tachyarrhythmias.
9. Beyond what was ablated as above there was no other inducible arrhythmia.
TOTAL FLOURO TIME: 14.6 minutes 112 mGy
TOTAL RF DURATION: 0 minutes
REVERSAL OF HEPARIN: 30 mg of protamine, slow IV administration with [id number] stitch to each femoral venous site
COMPLICATIONS:
None
Intracardiac US shows no pericardial effusion post ablation.
SUMMARY:��
Complex left atrial mapping and ablation.
Isolation of all 4 pulmonary veins and left atrial posterior wall as above.
RECOMMENDATIONS:
1. Ambulate in 4 hours. Given his back problems will keep at 10 to 20 degrees upright.
2. Resume anticoagulation
3.��Consider same-day discharge
4.��Discontinue amiodarone
Copy to: Dr. Gonzales Bullock
[2024-12-19] MEDS: TYLENOL 650 MG PO (13:03)
[2024-12-19] MEDS: ATIVAN 1 MG IV (16:17)
--- NOTE | 2024-12-19 16:32 | W.PN.UPDATE ---
Update Note
Progress Note Update
Slow superficial venous ooze in the left femoral venous access sites. He has baseline ecchymosis which was present preprocedure. Lidocaine with epi injection to the site brought about durable hemostasis and the site was dressed. He has slight
blood-tinged urine but is passing urine without difficulty. We did give him an additional 500 cc of normal saline and he was instructed to return to the emergency department if he stops urination or if he is passing blood clots. He was not
instrumented via the urethra for the procedure.
== END 2024-12-19 17:40 | disposition home or self-care (01) ==
LOC: CATH 07:40
PROVIDERS: ATTENDING PHYSICIAN Internal Medicine Cardiovascular Disease; FAMILY PHYSICIAN Internal Medicine Geriatric Medicine; OTHER PHYSICIAN Internal Medicine Cardiovascular Disease
DX: I48.91 Unspecified atrial fibrillation (principal); I47.19 Other supraventricular tachycardia; E03.9 Hypothyroidism, unspecified; E78.5 Hyperlipidemia, unspecified; I12.9 Hypertensive chronic kidney disease with stage 1 through stage 4 chronic kidney disease, or unspecified chronic kidney disease; K21.9 Gastro-esophageal reflux disease without esophagitis; M19.90 Unspecified osteoarthritis, unspecified site; M85.80 Other specified disorders of bone density and structure, unspecified site; N18.30 Chronic kidney disease, stage 3 unspecified; N40.0 Benign prostatic hyperplasia without lower urinary tract symptoms; R25.1 Tremor, unspecified; D63.8 Anemia in other chronic diseases classified elsewhere; N30.90 Cystitis, unspecified without hematuria; R41.89 Other symptoms and signs involving cognitive functions and awareness; G47.00 Insomnia, unspecified; Z79.899 Other long term (current) drug therapy; Z79.01 Long term (current) use of anticoagulants; Z79.51 Long term (current) use of inhaled steroids; Z88.0 Allergy status to penicillin; Z88.1 Allergy status to other antibiotic agents; Z88.8 Allergy status to other drugs, medicaments and biological substances; Z91.048 Other nonmedicinal substance allergy status; M48.00 Spinal stenosis, site unspecified; R26.2 Difficulty in walking, not elsewhere classified
CPT/HCPCS: 93656; 93657; C1732; C1894; C1730; C1769; C1892; C1759; 85347; 93005; C1733; C1766

== ENCOUNTER 2024-12-20 21:07 | Inpatient (IN) | payer MEDICARE, BC, SELFPAY ==
[2024-12-20 13:57] VITALS: BP 163/65
[2024-12-20 14:20] LABS: % Basophils 0.2 % (0-2); % Eosinophils 0.2 % (0-6); % Lymphocytes 9.3 % (20.5-51.1); % Monocytes 9.1 % (1.7-9.3); % Neutrophils 80.2 % (42.2-75.2); Absolute Immature Granulocytes 0.2 10^3/uL (0-0.05); Absolute Lymphocytes 1.5 10^3/uL (1.2-3.4); Absolute Monocytes 1.5 10^3/uL (0.1-0.6); Absolute Neutrophils 13.2 10^3/uL (1.4-6.5); Hematocrit 30.6 % (39.0-52.0); Hemoglobin 10.2 g/dL (13.0-18.0); Mean Corp Hgb Conc. 33.3 g/dL (33.0-37.0); Mean Corpuscular Hgb 33.8 pg (27.0-31.0); Mean Corpuscular Volume 101.3 fL (80.0-94.0); Mean Platelet Volume 9.9 fL (7.4-10.4); Nucleated Red Blood Cells % 0 % (-); Platelet Count 195 10^3/uL (130-400); Red Blood Cell Count 3.02 10^6/uL (4.70-6.10); Red Cell Dist. Width 15.1 % (11.5-14.5); White Blood Cell Count 16.4 10^3/uL (4.8-10.8)
[2024-12-20 14:38] LABS: ALT (SGPT) 35 U/L (0-50); AST (SGOT) 67 U/L (17-59); Albumin 3.9 g/dl (3.5-5.0); Alkaline Phosphatase 66 U/L (38-126); Blood Urea Nitrogen 56 mg/dl (9-20); Carbon Dioxide 24 mmol/L (22-30); Chloride 99 mmol/L (98-107); Glucose 100 mg/dl (70-99); Potassium 3.8 mmol/L (3.5-5.1); Sodium 132 mmol/L (135-145); Total Bilirubin 0.7 mg/dl (0.2-1.3); Total Protein 6.1 g/dl (6.3-8.2); eGFR 25.02
[2024-12-20 14:42] LABS: INR 1.24; PT 15.9 Sec (11.4-14.6)
--- NOTE | 2024-12-20 16:04 | ED.GENMED ---
History of Present Illness
<Barbie Fortune PA-C - Last Filed: 12/20/24 20:08>
General
Chief Complaint: Male Genito-Urinary Symptoms
Source: patient
Exam Limitations: none
Time Seen by Provider: 12/20/24 16:04
Nursing documentation reviewed up to this point in time: agreed with
History of Present Illness
History of Present Illness:
82-year-old male with past medical history of asthma, A-fib on Eliquis, CHF, hypertension, hyperlipidemia who presents emergency department today with concerns of hematuria. He reports that this started yesterday immediately after his cardiac
ablation with Dr. Underwood. Patient reports that he was told that this is normal postop effect however during the procedure he had no catheter placed and he had no urethral instrumentation. Patient denies any pelvic pain. He does note some
swelling in the left groin. He denies any dysuria. Denies any penile pain. He denies any dizziness or lightheadedness. He states that this morning when he was going to climb into bed, he fell onto his left side. He states that he not hit his
head at the time or injure his neck. He not endorse any other injuries. Did not lose consciousness. Patient did take Eliquis this morning. Patient sees urology for BPH and called his urology office as well as his cardiology office who vies him
to come the emergency department. Patient also notes that he has had diarrhea for the past few days. He denies any fevers or chills.
Past History
<Barbie Fortune PA-C - Last Filed: 12/20/24 20:08>
Past History
ED Past Medical History: HTN, Hypercholesterolemia and Other (PNA, GI bleeding due to Ulcers, renal calculus, Autoimmune disorder)
ED Past Surgical History: Orthopedic and Urological
Patient has exhibited threatening behavior?: No
PSI?: No
Social History
Tobacco: Non-smoker
Alcohol: Occasional
Personal:
Living: with family
Family History
Family History: Negative Diabetes, Hypertension or CAD
Review of Systems
<Barbie Fortune PA-C - Last Filed: 12/20/24 20:08>
Review of Systems
All Other Systems: ROS reviewed and negative except as documented in HPI and ROS
Phy Exam
<Barbie Fortune PA-C - Last Filed: 12/20/24 20:08>
Physical Exam
Physical Exam:
General: Patient is well appearing and in no acute distress; non-toxic
Skin: Warm and dry, no rashes or lesions
Head: Normocephalic, atraumatic
Eyes: Sclera non-icteric. EOMs intact.
Cardiac: Regular rate and rhythm, no murmurs
Peripheral Vascular: No lower extremity swelling or edema
Pulm: Normal respiratory effort, no wheezes, rales, or rhonchi
Abdomen: No abdominal tenderness to palpation
Genitourinary: Large hematoma noted to left groin, ecchymosis noted to base of penis
Neuro: CN II-XII intact, no focal neurologic deficits.
Psychiatric: Appropriate mood and affect.
Course
<Barbie Fortune PA-C - Last Filed: 12/20/24 20:08>
Orders/Labs/Results
Orders:
Orders
12/20/24 Breakfast
NPO
Allow oral meds: Yes
Allow clear liquids: Sips of Clears
12/20/24 14:13
Complete Blood Count/With Diff Urgent
Comprehensive Metabolic Panel Urgent
PTT Urgent
Prothrombin Time Urgent
12/20/24 16:54
0.9% Sodium Chloride 500 ml [Nss] 500 ml IV BOLUS
12/20/24 16:56
Electrocardiogram (*1) Urgent
Reason for Study: Fatigue / Weakness
EKG- Treatment ONCE
12/20/24 17:04
diazePAM [Valium Injection] 10 mg .ROUTE .STK-MED ONE
12/20/24 17:08
diazePAM [Valium Injection] 2.5 mg IV NOW STA
12/20/24 17:15
Piperacillin/Tazo 2.25 Gram [Zosyn] 2.25 grams in 50 ml IV NOW
12/20/24 17:16
Urine Culture Urgent
EMIGDIO Source: Urine
Specimen Description:
Obtained by: Indwelling Catheter
Date Specimen was Collected: 12/20/24
Time Specimen was Collected: 17:14
Vancomycin [Vancocin] 1,500 mg 0.9% Sodium Chloride 500 ml [Nss] 500 ml IV NOW
12/20/24 17:22
US Groin (vascular exam) LT Urgent
Comment:
Reason For Exam: groin pain, hematoma
US Groin (vascular exam) RT Urgent
Comment:
Reason For Exam: hematoma
12/20/24 17:27
diazePAM [Valium Injection] 2.5 mg IV Q4HPRN PRN
Catheter- Indwelling As Directed
Reason for insertion: Urology Determination
Catheter-Hand Irrigation As Directed
Solution:: Sterile 0.9% NaCl
Amount: 100-200cc
Frequency: prn
Reason for hand irrigation: clots/obstruction
Irrigate via:: Catheter directly
12/20/24 17:28
Continous Bladder Irrigation As Directed
Solution: Normal Saline
Keep urine: Clear
12/20/24 17:36
Lidocaine 2.5%/Prilocaine 2.5% [Emla Cream] 2 gram TOPICAL PRN PRN
12/20/24 18:41
C DIFF [C difficile Antigen & Toxins] Urgent
EMIGDIO Source: Feces/Stool
Specimen Description:
Date Specimen was Collected: 12/20/24
Time Specimen was Collected: 18:12
Stool Culture Urgent
EMIGDIO Source: Feces/Stool
Specimen Description:
Date Specimen was Collected: 12/20/24
Time Specimen was Collected: 18:12
12/20/24 20:47
Add On - Microbiology Urgent
Tests Added?: norovirus stool
Admit/Transfer Patient As Directed
Co-Sign Provider:
Level of Care: Inpatient admission
Assign to:: IMU- Intermediate Care
Physician / Group: Jean Pierre
Diagnosis: Hematuria
Reason for Hospitalization: Hematuria
Expected length of stay greater than two midnights?: Yes
ELOS- Estimated Length of Stay in days: 3
I certify the patient meets the requirements for IP care: Yes
PRN Pain Medication Management As Directed
May give lesser potent ordered pain med per pt: Yes
preference::
Protocol:: Medication orders for pain may be administered in a
manner that supports deferring to patient preference
when the pt is:
- Requesting an ordered lesser potent pain medication.
Least to most potent pain medications are defined
as: acetaminophen < NSAID < tramadol < opioids
(morphine, oxycodone, hydromorphone).
- Requesting a lesser dose of the same medication IF
ORDERED.
- Requesting a less intrusive route of administration
if both routes are prescribed by the provider (PO <
IV).
12/20/24 20:51
Code Status As Directed
Resuscitation Status: Full Code
12/20/24 21:55
0.9% Sodium Chloride 1000 ml [Nss] 1,000 ml IV 100 mls/hr
Acetaminophen [Tylenol] 650 mg PO Q4HPRN PRN
Albuterol [ProAIR HFA INHALER] 2 puff INH R Q4HPRN PRN
12/20/24 21:55
UROLOGY CONSULT Routine
Consulting Provider: Jaxon Barksdale Jr.
Was physician already notified: Yes
Comment: Hematuria
Activity As Directed
Activity Level: Bedrest
EKG with chest pain [ECG as needed] As Directed
ECG as needed for:: Chest Pain
I/O [Intake/ Output] As Directed
Frequency: Per unit guidelines
Pneumatic Compression Sleeves As Directed
Type: Knee high
Vital Signs As Directed
Frequency: Per unit guidelines
Weight As Directed
Frequency: Daily
Wound Care As Directed
Location of Wound: L Groin
Treatment of Wound: reinforce L groin dressing PRN
Oxygen Therapy [O2 Therapy] [RESP] Routine
Titrate/Wean O2 to maintain O2 sat greater than (%): 94
Ot Eval And Treat Routine
PT Consult [Pt Eval And Treat] Routine
Activity Level: Ambulate
With Assistance
DX Deep Vein Thrombosis Video Routine
12/20/24 22:00
Amlodipine [Norvasc] 2.5 mg PO HS
CefTRIAXone [Rocephin] 1,000 mg IV Q24H
Diazepam [Valium] 5 mg PO HS
12/21/24 06:00
Basic Metabolic Panel IN AM
Complete Blood Count/No Diff IN AM
Levothyroxine [Synthroid] 88 mcg PO DAILY@0600
12/21/24 08:00
Amiodarone [Pacerone] 200 mg PO BID
Atorvastatin [Lipitor] 10 mg PO DAILY
Prednisone [Deltasone] 2 mg PO Q48H
Saccharomyces Boulardii [Florastor] 250 mg PO BID
12/22/24 08:00
Prednisone [Deltasone] 3 mg PO Q48H
Abnormal Lab Results
12/20/24
14:13
WBC 16.4 H 10^3/uL
(4.8-10.8)
RBC 3.02 L 10^6/uL
(4.70-6.10)
Hgb 10.2 L g/dL
(13.0-18.0)
Hct 30.6 L %
(39.0-52.0)
MCV 101.3 H fL
(80.0-94.0)
MCH 33.8 H pg
(27.0-31.0)
RDW 15.1 H %
(11.5-14.5)
Abs Immat Gran (auto) 0.2 H 10^3/uL
(0-0.05)
Absolute Neuts (auto) 13.2 H 10^3/uL
(1.4-6.5)
Absolute Monos (auto) 1.5 H 10^3/uL
(0.1-0.6)
Immature Gran % 1.0 H %
(0-0.5)
Neutrophils % 80.2 H %
(42.2-75.2)
Lymphocytes % 9.3 L %
(20.5-51.1)
PT 15.9 H Sec
(11.4-14.6)
Sodium 132 L mmol/L
(135-145)
BUN 56 H mg/dl
(9-20)
Creatinine 2.5 H mg/dL
(0.7-1.3)
Glucose 100 H mg/dl
(70-99)
AST 67 H U/L
(17-59)
Total Protein 6.1 L g/dl
(6.3-8.2)
12/20/24 14:13
12/20/24 14:13
Vital Signs
Initial and Last Documented VS:
Initial Vital Signs
Temp Pulse Resp BP Pulse Ox
98.1 F 82 18 163/65 100
12/20/24 13:57 12/20/24 13:57 12/20/24 13:57 12/20/24 13:57 12/20/24 13:57
Last Documented Vital Signs
Temp Pulse Resp BP Pulse Ox
98.2 F 65 18 149/66 96
12/20/24 23:04 12/20/24 22:31 12/20/24 22:03 12/20/24 22:31 12/20/24 23:25
<Enzo Rodriguez, DO - Last Filed: 12/20/24 23:44>
Orders/Labs/Results
Orders:
Orders
12/20/24 Breakfast
NPO
Allow oral meds: Yes
Allow clear liquids: Sips of Clears
12/20/24 14:13
Complete Blood Count/With Diff Urgent
Comprehensive Metabolic Panel Urgent
PTT Urgent
Prothrombin Time Urgent
12/20/24 16:54
0.9% Sodium Chloride 500 ml [Nss] 500 ml IV BOLUS
12/20/24 16:56
Electrocardiogram (*1) Urgent
Reason for Study: Fatigue / Weakness
EKG- Treatment ONCE
12/20/24 17:04
diazePAM [Valium Injection] 10 mg .ROUTE .STK-MED ONE
12/20/24 17:08
diazePAM [Valium Injection] 2.5 mg IV NOW STA
12/20/24 17:15
Piperacillin/Tazo 2.25 Gram [Zosyn] 2.25 grams in 50 ml IV NOW
12/20/24 17:16
Urine Culture Urgent
EMIGDIO Source: Urine
Specimen Description:
Obtained by: Indwelling Catheter
Date Specimen was Collected: 12/20/24
Time Specimen was Collected: 17:14
Vancomycin [Vancocin] 1,500 mg 0.9% Sodium Chloride 500 ml [Nss] 500 ml IV NOW
12/20/24 17:22
US Groin (vascular exam) LT Urgent
Comment:
Reason For Exam: groin pain, hematoma
US Groin (vascular exam) RT Urgent
Comment:
Reason For Exam: hematoma
12/20/24 17:27
diazePAM [Valium Injection] 2.5 mg IV Q4HPRN PRN
Catheter- Indwelling As Directed
Reason for insertion: Urology Determination
Catheter-Hand Irrigation As Directed
Solution:: Sterile 0.9% NaCl
Amount: 100-200cc
Frequency: prn
Reason for hand irrigation: clots/obstruction
Irrigate via:: Catheter directly
12/20/24 17:28
Continous Bladder Irrigation As Directed
Solution: Normal Saline
Keep urine: Clear
12/20/24 17:36
Lidocaine 2.5%/Prilocaine 2.5% [Emla Cream] 2 gram TOPICAL PRN PRN
12/20/24 18:41
C DIFF [C difficile Antigen & Toxins] Urgent
EMIGDIO Source: Feces/Stool
Specimen Description:
Date Specimen was Collected: 12/20/24
Time Specimen was Collected: 18:12
Stool Culture Urgent
EMIGDIO Source: Feces/Stool
Specimen Description:
Date Specimen was Collected: 12/20/24
Time Specimen was Collected: 18:12
12/20/24 20:47
Add On - Microbiology Urgent
Tests Added?: norovirus stool
Admit/Transfer Patient As Directed
Co-Sign Provider:
Level of Care: Inpatient admission
Assign to:: IMU- Intermediate Care
Physician / Group: Jean Pierre
Diagnosis: Hematuria
Reason for Hospitalization: Hematuria
Expected length of stay greater than two midnights?: Yes
ELOS- Estimated Length of Stay in days: 3
I certify the patient meets the requirements for IP care: Yes
PRN Pain Medication Management As Directed
May give lesser potent ordered pain med per pt: Yes
preference::
Protocol:: Medication orders for pain may be administered in a
manner that supports deferring to patient preference
when the pt is:
- Requesting an ordered lesser potent pain medication.
Least to most potent pain medications are defined
as: acetaminophen < NSAID < tramadol < opioids
(morphine, oxycodone, hydromorphone).
- Requesting a lesser dose of the same medication IF
ORDERED.
- Requesting a less intrusive route of administration
if both routes are prescribed by the provider (PO <
IV).
12/20/24 20:51
Code Status As Directed
Resuscitation Status: Full Code
12/20/24 21:55
0.9% Sodium Chloride 1000 ml [Nss] 1,000 ml IV 100 mls/hr
Acetaminophen [Tylenol] 650 mg PO Q4HPRN PRN
Albuterol [ProAIR HFA INHALER] 2 puff INH R Q4HPRN PRN
12/20/24 21:55
UROLOGY CONSULT Routine
Consulting Provider: Jaxon Barksdale Jr.
Was physician already notified: Yes
Comment: Hematuria
Activity As Directed
Activity Level: Bedrest
EKG with chest pain [ECG as needed] As Directed
ECG as needed for:: Chest Pain
I/O [Intake/ Output] As Directed
Frequency: Per unit guidelines
Pneumatic Compression Sleeves As Directed
Type: Knee high
Vital Signs As Directed
Frequency: Per unit guidelines
Weight As Directed
Frequency: Daily
Wound Care As Directed
Location of Wound: L Groin
Treatment of Wound: reinforce L groin dressing PRN
Oxygen Therapy [O2 Therapy] [RESP] Routine
Titrate/Wean O2 to maintain O2 sat greater than (%): 94
Ot Eval And Treat Routine
PT Consult [Pt Eval And Treat] Routine
Activity Level: Ambulate
With Assistance
DX Deep Vein Thrombosis Video Routine
12/20/24 22:00
Amlodipine [Norvasc] 2.5 mg PO HS
CefTRIAXone [Rocephin] 1,000 mg IV Q24H
Diazepam [Valium] 5 mg PO HS
12/21/24 06:00
Basic Metabolic Panel IN AM
Complete Blood Count/No Diff IN AM
Levothyroxine [Synthroid] 88 mcg PO DAILY@0600
12/21/24 08:00
Amiodarone [Pacerone] 200 mg PO BID
Atorvastatin [Lipitor] 10 mg PO DAILY
Prednisone [Deltasone] 2 mg PO Q48H
Saccharomyces Boulardii [Florastor] 250 mg PO BID
12/22/24 08:00
Prednisone [Deltasone] 3 mg PO Q48H
Abnormal Lab Results
12/20/24
14:13
WBC 16.4 H 10^3/uL
(4.8-10.8)
RBC 3.02 L 10^6/uL
(4.70-6.10)
Hgb 10.2 L g/dL
(13.0-18.0)
Hct 30.6 L %
(39.0-52.0)
MCV 101.3 H fL
(80.0-94.0)
MCH 33.8 H pg
(27.0-31.0)
RDW 15.1 H %
(11.5-14.5)
Abs Immat Gran (auto) 0.2 H 10^3/uL
(0-0.05)
Absolute Neuts (auto) 13.2 H 10^3/uL
(1.4-6.5)
Absolute Monos (auto) 1.5 H 10^3/uL
(0.1-0.6)
Immature Gran % 1.0 H %
(0-0.5)
Neutrophils % 80.2 H %
(42.2-75.2)
Lymphocytes % 9.3 L %
(20.5-51.1)
PT 15.9 H Sec
(11.4-14.6)
Sodium 132 L mmol/L
(135-145)
BUN 56 H mg/dl
(9-20)
Creatinine 2.5 H mg/dL
(0.7-1.3)
Glucose 100 H mg/dl
(70-99)
AST 67 H U/L
(17-59)
Total Protein 6.1 L g/dl
(6.3-8.2)
12/20/24 14:13
12/20/24 14:13
Vital Signs
Initial and Last Documented VS:
Initial Vital Signs
Temp Pulse Resp BP Pulse Ox
98.1 F 82 18 163/65 100
12/20/24 13:57 12/20/24 13:57 12/20/24 13:57 12/20/24 13:57 12/20/24 13:57
Last Documented Vital Signs
Temp Pulse Resp BP Pulse Ox
98.2 F 65 18 149/66 96
12/20/24 23:04 12/20/24 22:31 12/20/24 22:03 12/20/24 22:31 12/20/24 23:25
Thailt;Barbie Fortune PA-C - Last Filed: 12/20/24 20:08>
MDM/Problems Addressed
Differential Diagnosis Includes:
Differentials include C. difficile colitis, gastroenteritis, urinary tract infection, spontaneous bleeding on Eliquis, bladder carcinoma, pseudoaneurysm
MDM/Problems Addressed:
84-year-old male presents emergency department today with concerns of hematuria. Started after cardiac ablation procedure yesterday where he had no urethral instrumentation. He does have a large hematoma noted to the left groin. He also has
extensive diarrhea.
He requires admission today to address multiple problems including acute on chronic renal failure/injury potentially related to extensive diarrhea, hematuria, as well as groin swelling. His ultrasound was negative for pseudoaneurysm. Stool culture
sent. Patient seen in the emergency department by Dr. Barksdale he did continuous bladder irrigation and decision was made to start patient on prophylactic antibiotics for UTI. Patient referred for admission.
Chronic conditions affecting care:
asthma, afib, chf, htn
<Barbie Fortune PA-C - Last Filed: 12/20/24 20:08>
*Pulse Oximetry
Patient hypoxic: no
*Critical Care Note
Total Time (30-74mins, 75-104mins- exclusive of procedures): Not Applicable
Data Reviewed
Review of Other/Old Records Reveals: Records (Reviewed discharge summary from 10/18/2023 patient seen for acute cystitis reviewed update note from 12/19/2024 patient seen for cardioversion procedure he was noted to be passing clots however he is not
cement he did but he is urethra for the procedure)
ED Attending Note
<Barbie Fortune PA-C - Last Filed: 12/20/24 20:08>
-
Portions of this chart may have been created with voice recognition software.� Occasional wrong word or��sound alike� substitutions may have occurred due to the inherent limitations of voice recognition software.
<Enzo Rodriguez, - Last Filed: 12/20/24 23:44>
ED Attending Note
Patient seen and examined by attending physician: Yes
I performed a history and physical exam of patient and discussed management with resident, I reviewed resident's note and agree with documented findings and plan of care.: Yes
ED Attending Note:
I reviewed and agree with history plan by Barbie Fortune. My exam revealed 82-year-old male with indwelling Suarez, draining pink urine, ecchymosis swelling left groin. Ultrasound negative for pseudoaneurysm. Acute renal failure on chronic.
Admit to hospitalist. Patient seen by urology.
Discharge Plan
Departure
Patient Disposition: Admit
Date of Disposition: 12/20/24
Time of Disposition: 18:45
Admit to: Med/Surg
Presentation/result/management discussed w/ accepting MD/DO: Hospitalist
Patient with high blood pressure during this ER visit?: Yes
Condition: Fair
Discharge Problem:
Hematuria, Diarrhea, Renal failure, acute on chronic
Interventions
Interventions:
*Risk Screen - Suicide Last Done: 12/20/24 13:57
*General Assessment Last Done: 12/20/24 13:57
*Neglect/Abuse Screening Last Done: 12/20/24 13:57
*Nursing Disposition Last Done: 12/20/24 22:01
ED-Male Genitourinary Assessment Last Done: 12/20/24 16:30
Discharge Date and Time
Discharge Date/Time: 12/20/24 22:02
[2024-12-20] MEDS: VALIUM INJECTION 2.5 MG IV (17:09)
--- NOTE | 2024-12-20 17:22 | CON.MD ---
Consultation - Medical
-
see dictated note
pt known to dr madrid- hx of cystits- bacteria and abacterial
in 2022 had TURP and TURBT- benign path
hx of intermittent retention- but current pvr's by report under 200cc
maintained on monthly bladder instillations
chronic afib- on eliquis
had ablation yesterday- in recovery groin bleeding and hematuria noted- pt released on eliquis
presents to ER today with gross hematuria and weakness and diarrhea
cr up to 2.5/wbc elevated at 16/hgb down
3 way norris placed- 22 comoran due to meatal stx- 400cc dark bloody urine returned- submitted for cx- irrigaged clot free- on rapid cbi- pink
plan
discussed with med team
pt with profound hematuria/groin bleed and dropping hgb
will unfortunately need to hold eliquis
norris and cbi
trend hgb
send ucx- start empiric antibx
trend cr
will follow closely
[2024-12-20 17:28] VITALS: BP 146/67
[2024-12-20 17:30] VITALS: BMI 29.4
[2024-12-20] MEDS: ZOSYN 50 IV (18:05)
[2024-12-20] MEDS: NSS 500 IV (18:07)
[2024-12-20] MEDS: VANCOCIN 530 MG IV (19:01)
[2024-12-20 20:28] VITALS: BP 139/68
--- NOTE | 2024-12-20 20:55 | HPS.HSE ---
Family Physician
-
Family Physician: Sin Sena
Chief Complaint
-
Hematuria / Fall at Home
History of Present Illness
Patient is an 84y M with PMH significant for paroxysmal A-Fib s/p PVI ablation on 12/19/24 who presents to ED complaining of gross hematuria, weakness and fall at home. Patient was seen here at yesterday for scheduled PVI ablation. Patient
notes that he had gross hematuria following this procedure. He was discharged to home with instructions to resume his Eliquis which he did last PM. He took doses last night and this AM. He has had persistent, gross hematuria since that time.
Today patient slipped climbing into bed and fell to the floor. He denies any prodrome of lightheadedness or dizziness. He denies any fevers / chills, N/V. He did not strike his head or lose consciousness. Patient was unable to get up unassisted
and his neighbors were called for help. They then brought him to the ED for further evaluation.
In the ED patient had 3-way Suarez placed and CBI was initiated with red colored urine.
Patient also notes recent diarrhea. He states that this initially started on Sunday. He had watery stools and fecal incontinence. Patient attributed this to his nerves about his upcoming procedure. He took Imodium and his symptoms improved.
Yesterday and today he has had recurrence of this diarrhea. No bloody stools.
Medical History
Past Medical History
Past Medical History: Reports Other
Additional Past Medical History:
Paroxysmal Atrial Fibrillation
Moderate Mitral Regurgitation
Hypertension
Cystitis
BPH
CKD III
Generalized Tremor
GERD
Restrictive Lung Disease
Spinal Stenosis
Hypothyroidism
Chronic Anemia
Past Surgical History: Reports Other
Additional Past Surgical History:
PVI Ablation (12/19/24)
Laminectomy
Cataracts
TURP
TURBT (benign)
Social History
Tobacco: Non-smoker
Alcohol: None
Drug: None
Family History
Family History: Not pertinent
Allergies / Home Medications
Allergies reflects when Allergies were last updated in [facility].
Home Medications with original date entered in [facility]
Allergy/Medication List:
Allergies
Allergy/AdvReac Type Severity Reaction Status Date / Time
adhesive Allergy Rash Verified 12/20/24 13:57
amoxicillin [From Augmentin] Allergy excessive Verified 12/20/24 13:57
diarrhea
clavulanic acid Allergy excessive Verified 12/20/24 13:57
[From Augmentin] diarrhea
gabapentin Allergy VERY Verified 12/20/24 13:57
AGITATED,
Moodiness
levofloxacin [From Levaquin] Allergy achilles Verified 12/20/24 13:57
tendonitis
Home Medications
atorvastatin 10 mg tablet 10 mg PO DAILY High cholesterol 07/05/14
albuterol sulfate 90 mcg/actuation aerosol inhaler 2 puff inhalation R Q4HPRN PRN sob/wheezing 08/10/22
vit C 250 mg-vit E 90 mg-zinc 40 mg-copper 1 [id number] capsule (PreserVision AREDS-2) 1 tab PO BID Supplement 08/10/22
vitamin B complex 1 tab PO QPM Supplement 08/10/22
Saccharomyces boulardii 250 mg capsule (Florastor) 250 mg PO BID Gastrointestinal Issue 01/27/23
amlodipine 2.5 mg tablet 2.5 mg PO HS Blood Pressure 01/27/23
pantoprazole 40 mg tablet,delayed release (Protonix) 40 mg PO BID Gastrointestinal Issue 01/27/23
denosumab 60 mg/mL subcutaneous syringe (Prolia) 60 mg SC [id number] osteo 09/07/23
dutasteride 0.5 mg capsule 0.5 mg PO DAILY Urinary Issue ##0 09/07/23
psyllium husk 0.52 gram capsule 0.52 g PO DAILYPRN PRN constipation 09/07/23
methenamine 81.6 mg-sod phos 40.8 mg-methylene blue 0.12mg-hyos tablet (Urogesic-Blue) 1 tab PO BID PRN Urinary Issue 09/13/23
prednisone 1 mg tablet 3 mg PO Q48H Anti-Inflammatory 10/06/23
apixaban 2.5 mg tablet (Eliquis) 2.5 mg PO BID 30 days #60 tabs 10/18/23
fexofenadine 60 mg tablet 60 mg PO BID PRN itching 05/27/24
fluticasone 500 mcg-salmeterol 50 mcg/dose blistr powdr for inhalation (Advair Diskus) 1 inh inhalation BID PRN wheezing 05/27/24
diazepam 5 mg tablet (Valium) 5 mg PO HS 11/26/24
furosemide 20 mg tablet 20 mg PO DAILY PRN Swelling Left Foot 11/26/24
amiodarone 200 mg tablet 200 mg PO BID Arrhythmia 12/20/24
levothyroxine 88 mcg tablet 88 mcg PO DAILY@0600 12/20/24
prednisone 1 mg tablet 2 mg PO Q48H 12/20/24
Review of Systems
-
History Source: Patient
A 12 point ROS was completed and negative except as noted: Yes
Constitutional: Reports Fatigue; Denies Fever or Chills
EENT: Denies Sore Throat
Respiratory: Denies Cough or Trouble Breathing
Cardiac: Denies Chest Pain or Palpitations
Abdomen/GI: Reports Abdominal Pain (lower abdominal discomfort.) and Diarrhea; Denies Nausea, Vomiting, Bloody Stools or Black Stools
: Reports Bleeding; Denies Dysuria or Frequency
Neurological: Reports Weakness; Denies Dizzy or Headache
Psych: Denies Depression or Anxiety
Physical Exam
Vital Signs
Vital Signs
Temp Pulse Resp BP Pulse Ox
98.1 F 78 19 139/68 100
12/20/24 17:29 12/20/24 20:30 12/20/24 20:30 12/20/24 20:28 12/20/24 20:30
Physical Exam
General: Other (84y M in no acute distress. Generalized / diffuse tremor.)
HEENT: Moist mucous membranes and PERRLA
Respiratory: Clear; No Wheezes, Rales or Rhonchi
Cardiac: S1/S2, Regular Rhythm and Murmur (II/ AYESHA)
GI: Soft, Non Distended, Normal Bowel Sounds and Other (Mild suprapubic tenderness without rebound / guarding.)
Genito-urinary: Other (Suarez in place with CBI running and punch-colored urine in device. No clots noted.)
Musculoskeletal: No Clubbing, No Cyanosis and No Edema
Skin: Other (L groin with ecchymosis / hematoma. Dressing in place from recent ablation. R groin without significant hematoma / bleeding.)
Neuro: AO x 3
Laboratory Results
-
12/20/24 14:13
12/20/24 14:13
Laboratory Results
PT 15.9 Sec (11.4-14.6) H 12/20/24 14:13
INR 1.24 12/20/24 14:13
APTT 28.0 Sec (23.4-35.0) 12/20/24 14:13
Total Bilirubin 0.7 mg/dl (0.2-1.3) 12/20/24 14:13
AST 67 U/L (17-59) H 12/20/24 14:13
ALT 35 U/L (0-50) 12/20/24 14:13
Alkaline Phosphatase 66 U/L (38-126) 12/20/24 14:13
Impression/Plan
-
A/P: Patient is an 84y M with PMH significant for A-Fib s/p PVI ablation (12/19/24), BPH and cystitis who presents to ED complaining of gross hematuria, weakness and fall at home.
Gross Hematuria
Acute on Chronic Cystitis
- Admit for further evaluation and treatment.
- Appreciate Urology evaluation / input.
- Maintain CBI until urine clears.
- Remain off of Eliquis for now.
- Empiric abx pending culture data.
Acute Blood Loss Anemia
Anemia of Chronic Disease
- Hgb = 10 down from baseline around 12.
- Likely blood loss due to combination groin hematoma and hematuria.
- Holding Eliquis as noted above.
- Follow H&H for changes and transfuse if needed.
- Consent obtained / scanned.
FORREST on CKD III
- SCr = 2.5 compared to known baseline of 1.3.
- Likely pre / post renal combination.
- Maintain CBI / Suarez drainage.
- IVF support overnight.
- Follow for continued urine output / improvement in renal function.
Leukocytosis
- ? secondary to acute infection, cystitis, etc versus stress reponse / blood loss.
- IV abx empirically as noted above.
- Follow for changes in cell counts.
Paroxysmal Atrial Fibrillation
s/p PVI Ablation 12/19/24
- Stable in sinus rhythm at present.
- Monitor on telemetry overnight.
- Continue amiodarone.
- Unfortunately need to hold Eliquis until hematuria has resolved.
- Local care / reinforce dressing at L groin. US done in the reportedly shows no pseudoaneurysm (only verbal report received).
Diarrhea
- Unclear etiology but certainly may be infectious in origin.
- Doubt CDiff with no recent abx use.
- Check stool cultures, Norovirus.
- IVF support as noted above.
- Hold antidiarrheals until infection is ruled out.
- Hold PPI, bowel regimen.
- Has fecal collection device in place at present given recent b/l groin access sites.
Benign Hypertension
- Stable. Continue amlodipine with holding parameters.
Hypothyroidism
- Stable. Continue T4 replacement.
BPH
- Stable. Continue dutasteride.
DVT Prophylaxis: SCDs
Code Status: Full
[2024-12-20 21:00] VITALS: BP 145/72
[2024-12-20 22:03] VITALS: BP 149/66
[2024-12-20 22:09] VITALS: BMI 27.0
[2024-12-20 22:10] VITALS: BMI 27.0
[2024-12-20] MEDS: NORVASC 2.5 MG PO (22:31)
[2024-12-20] MEDS: ROCEPHIN 1000 MG IV (22:31)
[2024-12-20] MEDS: NSS 1000 IV (22:31)
[2024-12-20] MEDS: VALIUM 5 MG PO (22:31)
[2024-12-20] MEDS: STERILE WATER FOR INJECTION 10 ML IV (22:31)
[2024-12-20] MEDS: TYLENOL 650 MG PO (22:40)
[2024-12-21] VITALS (13 sets, daily range): BP systolic 103–146; BP diastolic 43–76; BMI 26.8
[2024-12-21] MEDS: SYNTHROID 88 MCG PO (05:42)
[2024-12-21] MEDS: TYLENOL 650 MG PO ×2 (06:00→22:11)
[2024-12-21 06:13] LABS: Hematocrit 26.1 % (39.0-52.0); Hemoglobin 8.7 g/dL (13.0-18.0); Mean Corp Hgb Conc. 33.3 g/dL (33.0-37.0); Mean Corpuscular Hgb 33.5 pg (27.0-31.0); Mean Corpuscular Volume 100.4 fL (80.0-94.0); Mean Platelet Volume 10.4 fL (7.4-10.4); Platelet Count 161 10^3/uL (130-400); Red Cell Dist. Width 15.2 % (11.5-14.5); White Blood Cell Count 11.4 10^3/uL (4.8-10.8)
[2024-12-21 06:27] LABS: Blood Urea Nitrogen 42 mg/dl (9-20); Calcium 8.1 mg/dl (8.4-10.2); Carbon Dioxide 24 mmol/L (22-30); Chloride 110 mmol/L (98-107); Estimated Creatinine Clearance 28 ml/min; Glucose 93 mg/dl (70-99); Potassium 4.1 mmol/L (3.5-5.1); Sodium 138 mmol/L (135-145); eGFR 39.75
--- NOTE | 2024-12-21 07:02 | PTCARENOTE ---
Admitted pt overnight. at bedside. aaox3, pleasant. C/o chronic lower back pain, tylenol given. NSR on monitor. remains ra. CBI running, now clear yellow, on bag #5. FMS in for waterty diarrhea, pending stool cultures. ivf ivabx. no other
issues overnight. Will continue to monitor.
[2024-12-21] MEDS: LIPITOR 10 MG PO (07:45)
[2024-12-21] MEDS: PACERONE 200 MG PO (07:45)
[2024-12-21] MEDS: DELTASONE 2 MG PO (07:46)
[2024-12-21] MEDS: FLORASTOR 250 MG PO ×2 (07:46→20:11)
[2024-12-21] MEDS: PROSCAR 5 MG PO (07:46)
[2024-12-21] MEDS: NSS 1000 IV ×2 (07:48→17:30)
--- NOTE | 2024-12-21 08:58 | W.PN.URO.CBU ---
Today's Communication / Plan
-
continue cbi
await ucx start flomax
Assessment / Plan
-
hx of bph and chronic cystitis
gross hematuria
drop in hgb- but minimal gu bleeding at this time
continue antibx- await ucx
wean cbi- try to stop at midnight
if urine clear tomorrow can discuss timing of eliquis resumption
begin flomax
Diagnosis
-
Date of Service: December 21, 2024
-
Patient Diagnosis:
gross hematuria
Subjective
-
pt says he feels a little better today
still with loose stools
wbc down/cr down- hgb down
groins appear stable
urine peach color
Objective
-
Vital Signs
Temp Pulse Resp BP Pulse Ox
98.0 F 72 18 103/76 95
12/21/24 08:03 12/21/24 08:00 12/21/24 08:00 12/21/24 08:00 12/21/24 08:00
Intake and Output
12/20/24 12/21/24 12/22/24
06:59 06:59 06:59
Output Total 1674 / 1675
Balance -5 / -1674
Output:
True Urine Output from CBI 1674
Laboratory Results
12/21/24 05:48
12/21/24 05:48
Review of Systems
-
Constitutional: Fatigue
Respiratory: No Symptoms
Cardiac: No Symptoms
Abdomen/GI: No Symptoms
: Other (some bladder spasms)
Physical Exam
-
General - no acute distress
Abdomen - soft, non-tender, right groin- some minimal drainage- left side- sig ecchymosis- hematoma- no active bleeding
Genitalia - normal- 3 way norris in
--- NOTE | 2024-12-21 09:51 | W.PN.HOSP.TC ---
Today's Communication/Plan
-
see bold
Assessment / Plan
Assessment / Plan
84y M with PMH significant for A-Fib s/p PVI ablation (12/19/24), BPH and cystitis who presents to ED complaining of gross hematuria, weakness and fall at home.
Gen: NAD, AAOx3.
Eyes: EOMI, PERRLA, no scleral icterus.
Neck: supple.
CV: RRR, +S1/S2, no m/r/g.
Resp: CTAB, no rales, wheezes, or rhonchi.
Abd: +BS, soft, NT, ND
Skin: No rashes.
: norris with clear/yellow urine
Neuro: CN 2-12 intact, non-focal.
Psych: Normal mood and affect.
Gross Hematuria due to acute on chronic cystitis:
-urology following
-cont CBI
-exacerbated by Eliquis which is on hold
-cont Rocephin
-follow UCx
-leukocytosis improving
Acute Blood Loss Anemia on Anemia of Chronic Disease:
-due to combination groin hematoma and hematuria exacerbated by Eliquis (which is on hold)
-trend Hb
FORREST on CKD3a:
-pre and post renal
-cont IVFs, norris
Paroxysmal Atrial Fibrillation:
-s/p PVI Ablation 12/19/24
-currently in SR
-cont amio
-holding Eliquis with hematuria/ABLA
-Local care / reinforce dressing at L groin. US done in the reportedly shows no pseudoaneurysm (only verbal report received).
Other problems:
Diarrhea: C diff and Norovirus NEG. Has fecal collection device in place at present given recent b/l groin access sites.
Essential HTN: cont Norvasc with holding parameters.
Hypothyroidism: cont Levoxyl
BPH: cont dutasteride.
FULL/SCDs
Anticipated Discharge: 24 - 48 hours
Subjective/Interval History
-
Date of Service: December 21, 2024
Denies CP/SOB/abd pain.
Objective Data
-
Labs:
Laboratory Results
12/21/24
05:48
WBC 11.4 H
Hgb 8.7 L
Hct 26.1 L
Plt Count 161
Sodium 138
Potassium 4.1
Chloride 110 H
Carbon Dioxide 24
BUN 42 H
Creatinine 1.7 H
Glucose 93
Calcium 8.1 L
Vital Signs:
Vital Signs
Temp Pulse Resp BP Pulse Ox
98.0 F 72 18 103/76 95
12/21/24 08:03 12/21/24 08:00 12/21/24 08:00 12/21/24 08:00 12/21/24 08:00
I&O
12/20/24 12/21/24 12/22/24
06:59 06:59 06:59
Output Total 1674 / 167
Balance -1674 / -167
[2024-12-21] MEDS: FLOMAX 0.4 MG PO (10:04)
--- NOTE | 2024-12-21 12:28 | CM ---
Patient seen at bedside.
IA completed.
Dx: Hematuria, fall at home
PMH: A-Fib, PVI ablation (12/19/24), BPH and cystitis
Patient lives in a 2 story home with , resides on 1st floor
PLOF: ambulates with rollator
DME: rollator
Patient states is current with [facility]
Has been at [facility] in past
Denies insecurities
PCP: Yashira Sena
PHARMACY: [facility], [id number], [place]
PLAN: To be determined, await PT/OT evals
--- NOTE | 2024-12-21 18:12 | PTCARENOTE ---
Rec'd pt this AM. CBI clear, order to turn off tonight at midnight. Groin site CDI, stable ecchymosis present. Spouse upodated at bedside. Pt resting comfortably.
[2024-12-21] MEDS: PACERONE PO (20:11)
[2024-12-21] MEDS: NORVASC 2.5 MG PO (22:07)
[2024-12-21] MEDS: ROCEPHIN 1000 MG IV (22:07)
[2024-12-21] MEDS: VALIUM 5 MG PO (22:07)
[2024-12-21] MEDS: STERILE WATER FOR INJECTION 10 ML IV (22:08)
[2024-12-22] VITALS (10 sets, daily range): BP systolic 125–166; BP diastolic 50–81; PULSE 76; O2SAT 100; BMI 28.2
[2024-12-22] MEDS: NSS 1000 IV (03:16)
[2024-12-22 03:44] LABS: Hematocrit 22.8 % (39.0-52.0); Hemoglobin 7.4 g/dL (13.0-18.0); Mean Corp Hgb Conc. 32.5 g/dL (33.0-37.0); Mean Corpuscular Volume 101.8 fL (80.0-94.0); Mean Platelet Volume 10.4 fL (7.4-10.4); Platelet Count 149 10^3/uL (130-400); Red Blood Cell Count 2.24 10^6/uL (4.70-6.10); Red Cell Dist. Width 15.3 % (11.5-14.5); White Blood Cell Count 8.7 10^3/uL (4.8-10.8)
[2024-12-22 04:05] LABS: Blood Urea Nitrogen 24 mg/dl (9-20); Calcium 7.9 mg/dl (8.4-10.2); Carbon Dioxide 22 mmol/L (22-30); Chloride 111 mmol/L (98-107); Estimated Creatinine Clearance 40 ml/min; Glucose 94 mg/dl (70-99); Potassium 3.9 mmol/L (3.5-5.1); Sodium 134 mmol/L (135-145); eGFR > 60.00
[2024-12-22] MEDS: SYNTHROID 88 MCG PO (05:40)
--- NOTE | 2024-12-22 05:43 | PTCARENOTE ---
Received pt at change of shift. CBI running very slowly with clear output - urine clear and blue tinted; No hematuria present. CBI Clamped at midnight. Output remains clear. Pt offers no complaints of discomfort or pain. Morning labs show a Hgb
of 7.4. Notified LITIGATION SUPPORT ANALYST of hgb drop. No new orders at this time. Pt VSS at this time. Pt resting in bed with call morrow in reach.
--- NOTE | 2024-12-22 05:56 | W.PN.URO.CBU ---
Today's Communication / Plan
-
norris out for TOV
await ucx
Assessment / Plan
-
hx of bph and chronic cystitis
gross hematuria
urine clear- will remove norris for TOV and assist with UOOB
on flomax and proscar
would not restart eliquis today given drop in hgb
await ucx
no evid of active gu bleeding- drop of hgb prob somewhat dilutional- will discuss transfusion parameters with med team
Diagnosis
-
Date of Service: December 22, 2024
-
Patient Diagnosis:
gross hematuria
Subjective
-
pt feels better
cbi off since midnight- urine yellow
says loose stools resolving
left groin still swollen and echymotic- but stable
cr normalized/wbc rosalia/ ucx pending
hct down to 22
Objective
-
Vital Signs
Temp Pulse Resp BP Pulse Ox
98.5 F 72 32 137/63 94
12/22/24 03:28 12/22/24 04:00 12/22/24 04:00 12/22/24 04:00 12/22/24 04:00
Intake and Output
12/20/24 12/21/24 12/22/24
06:59 06:59 06:59
Intake Total 1680 / 1680
Output Total 1675 / 1675 2200 / 2200
Balance -1675 / -1675 -520 / -520
Intake:
Oral fluids 480 / 480
IV fluids (Total) 1200 / 1200
Output:
Urine, Norris 850 / 850
True Urine Output from CBI 1675 / 1675 1350 / 1350
Laboratory Results
12/22/24 03:23
12/22/24 03:23
Review of Systems
-
Constitutional: Fatigue
Respiratory: No Symptoms
Cardiac: No Symptoms
Abdomen/GI: No Symptoms
Physical Exam
-
General - no acute distress
Abdomen - soft, non-tender, left groin echymotic- but stable
Genitalia - norris in place- urine yellow
--- NOTE | 2024-12-22 07:37 | PTCARENOTE ---
Orders to remove norris , norris removed without incident, FMS removed as it has no out put and it is uncomfortable for pt. Pt asked for seq to be removed for a bit
[2024-12-22] MEDS: PACERONE 200 MG PO (08:34)
[2024-12-22] MEDS: FLOMAX 0.4 MG PO (08:34)
[2024-12-22] MEDS: LIPITOR 10 MG PO (08:34)
[2024-12-22] MEDS: DELTASONE PO (08:44)
[2024-12-22] MEDS: PROSCAR 5 MG PO (08:45)
[2024-12-22] MEDS: FLORASTOR 250 MG PO ×2 (08:46→21:34)
--- NOTE | 2024-12-22 08:59 | PTOTSP ---
Reviewed chart, needs to be off bedrest orders to initiate PT and OT.
[2024-12-22] MEDS: DELTASONE 3 MG PO (09:00)
--- NOTE | 2024-12-22 13:13 | CON.CAR ---
Addendum entered and electronically signed by Gonzales Bullock MD 12/22/24 15:58:
84-year-old well-known to me who underwent PVI using pulsed field energy on December 19, 2024. Now admitted with hematuria was instructed to resume Eliquis yesterday. Patient sustained a fall earlier today, CBI started and subsequently
discontinued.
PMH: HFpEF, history of moderate to severe mitral regurgitation which improved to mild to moderate by 2023, paroxysmal atrial fibrillation and atypical atrial flutter on amiodarone hypertension, hyperlipidemia, GERD, hyperparathyroidism, pemphigus,
osteomyelitis of the lumbar spine, history of GI bleeding from gastric ulcer requiring transfusion 2021, stage IIIb CKD, mention of ankylosing spondylitis
PSH: Hemilaminectomy for osteomyelitis of the lumbar spine, renal lithotripsy, TURP, rhizotomy,
Allergies/meds/SH/FH/ROS: See below
144/64, pulse 72, respiratory 20, afebrile, sats 100%, weight is 74.5 kg, head neck exam unremarkable, regular rate and rhythm, no murmurs, abdomen benign, extremities without clubbing cyanosis or edema
Current medications: Amiodarone 200 mg twice daily, atorvastatin 10 mg a day, amlodipine 2.5 mg daily, Valium, levothyroxine, prednisone 2 mg every 48 alternating 3 mg every 48, ceftriaxone, finasteride, tamsulosin
ECG sinus rhythm nonspecific T wave changes
Hemoglobin 7.4, BUN/creatinine 24 and 1.2, potassium 3.9, sodium 134
Sestamibi stress test November 2023: Normal perfusion, EF 59%
Echo January 2024: EF 55-60%, stage III diastolic dysfunction, pulmonary artery systolic pressure 45 mmHg, mild to moderate MR, previously evaluated for ATTR cardiomyopathy, felt to be negative
Plan:
At present, he is stable from a cardiac standpoint, but with the recent PVI we are anxious to reinitiate anticoagulation. His Eliquis dose has been left at 2.5 p.o. twice daily after he was admitted with a creatinine of 2.5, but ideally should be 5
mg twice daily as his creatinine has dropped to 1.2 daily. Obviously, we must wait until hematuria has cleared and then restart Eliquis when safe from a urologic standpoint. Defer to urology as to whether cystoscopy, etc. is required. From
cardiac standpoint this could be done at acceptable cardiac risk.
He has a history of HFpEF, currently not on furosemide, will need to observe for evidence of volume overload.
Current hemoglobin is 7.4, will observe for now, may need transfusion if continues to drop.
Original Note:
Consultation
Consultation Request
Date/Time Consultation Requested: 12/22/2024, 1135
Date/Time Consultation Performed: 12/22/2024, 1315
Requesting Provider: Dr Burgess
Performing Provider: EDA Concepcion for Dr Bullock
Reason for Consultation: hematuria s/p afib ablation 12/19/2024
Medical History
-
Chief Complaint: hematuria
History of Present Illness:
84-year-old male with paroxysmal atrial fibrillation status post pulsed field PVI on 12/19/2024. Postprocedure had blood-tinged urine with no dysuria. There was no catheter placed or urethral instrumentation during the procedure. Also had
superficial venous ooze from left femoral venous access sites and was treated with lidocaine with epinephrine injection to the site with hemostasis achieved. He was discharged same day and resumed Eliquis the evening of 12/19/2024, advised to return
to ED if developed worsened hematuria.
He presented to the ED on 12/20/2024 with hematuria, no dysuria. Describes blood as bright red. Also with diarrhea. Labs on admission hemoglobin 10.2. Urology was consulted and advised Suarez and CBI, urine culture. Antibiotics started,
Ceftriaxone. Ultrasound of groin 12/20/2024 shows no evidence of pseudoaneurysm or hematoma of bilateral groins. Eliquis has been on hold since admission on 12/20/2024.
Hgb trended down to 8.7 12/21/2024 and 7.4 12/22/2024. Getting repeat hemoglobin this afternoon.
Patient reports urine is now switchboard receptionist in color but continues to be blood-tinged. He denies lightheadedness, dizziness, shortness of breath, palpitations, chest pain. He has ambulated with PT using his rolling walker.
He remains in normal sinus rhythm.
In regards to his atrial arrhythmias, he has known atrial fibrillation and atypical atrial flutter. He has been on amiodarone (since 09/2023)and has chemically converted with temporary uptitration of the dose, as well as required electrical
cardioversions (s/p CV 11/10/2024, 05/27/2024, 11/20/2023). He developed a tremor on amiodarone and it was decided to proceed with pulmonary vein isolation. Prior to recent hematuria, he had been maintained on ELiquis 2.5 mg bid.
PMH:
Chronic cystitis and urinary retention
s/p TURP and TURBT 09/13/23
Paroxysmal to persistent atrial fibrillation
-s/p PVI 12/19/2024
-s/p CV 11/10/2024, 05/27/2024, 11/20/2023
-On amiodarone
on Eliquis OAC, but on hold due to hematuria
Chronic HFpEF
mod-severe MR
H/o GIB
Anemia
CKD3b
Spinal osteomyelitis 2021 treated at [facility]
SIADH
Essential hypertension
HLD
Pemphigus vulgaris
Ankylosing spondylitis
Nephrolithiasis
Osteoarthritis/osteoporosis
GERD
Past Medical History
Past Medical History: Other (in HPI)
Past Surgical History: Orthopedic and Urological
Social History
Tobacco: Non-Smoker
Alcohol: Occasional
Drug: None
Personal:
Living: With Family
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
Family History
Family History: CAD, Cancer, Diabetes and Hypertension
Allergies / Home Medications
Allergy/AdvReac Type Severity Reaction Status Date / Time
adhesive Allergy Rash Verified 12/20/24 13:57
amoxicillin [From Augmentin] Allergy excessive Verified 12/20/24 13:57
diarrhea
clavulanic acid Allergy excessive Verified 12/20/24 13:57
[From Augmentin] diarrhea
gabapentin Allergy VERY Verified 12/20/24 13:57
AGITATED,
Moodiness
levofloxacin [From Levaquin] Allergy achilles Verified 12/20/24 13:57
tendonitis
�Medication �Instructions �Recorded �Confirmed �Type
atorvastatin 10 mg tablet 10 mg PO DAILY High cholesterol 07/05/14 12/20/24 History
albuterol sulfate 90 mcg/actuation 2 puff inhalation R Q4HPRN PRN 08/10/22 12/20/24 History
aerosol inhaler sob/wheezing
vit C 250 mg-vit E 90 mg-zinc 40 1 tab PO BID Supplement 08/10/22 12/20/24 History
mg-copper 1 [id number]
capsule (PreserVision AREDS-2)
vitamin B complex 1 tab PO QPM Supplement 08/10/22 12/20/24 History
Saccharomyces boulardii 250 mg 250 mg PO BID Gastrointestinal 01/27/23 12/20/24 History
capsule (Florastor) Issue
amlodipine 2.5 mg tablet 2.5 mg PO HS Blood Pressure 01/27/23 12/20/24 History
pantoprazole 40 mg tablet,delayed 40 mg PO BID Gastrointestinal Issue 01/27/23 12/20/24 History
release (Protonix)
denosumab 60 mg/mL subcutaneous 60 mg SC [id number] osteo 09/07/23 12/20/24 History
syringe (Prolia)
dutasteride 0.5 mg capsule 0.5 mg PO DAILY Urinary Issue ##0 09/07/23 12/20/24 History
psyllium husk 0.52 gram capsule 0.52 g PO DAILYPRN PRN constipation 09/07/23 12/20/24 History
methenamine 81.6 mg-sod phos 40.8 1 tab PO BID PRN Urinary Issue 09/13/23 12/20/24 History
mg-methylene blue 0.12mg-hyos
tablet (Urogesic-Blue)
prednisone 1 mg tablet 3 mg PO Q48H Anti-Inflammatory 10/06/23 12/20/24 History
apixaban 2.5 mg tablet (Eliquis) 2.5 mg PO BID 30 days #60 tabs 10/18/23 12/20/24 Rx
fexofenadine 60 mg tablet 60 mg PO BID PRN itching 05/27/24 12/20/24 History
fluticasone 500 mcg-salmeterol 50 1 inh inhalation BID PRN wheezing 05/27/24 12/20/24 History
mcg/dose blistr powdr for
inhalation (Advair Diskus)
diazepam 5 mg tablet (Valium) 5 mg PO HS Mental Health/Anxiety 11/26/24 12/20/24 History
furosemide 20 mg tablet 20 mg PO DAILY PRN Swelling Left 11/26/24 12/20/24 History
Foot
amiodarone 200 mg tablet 200 mg PO BID Arrhythmia 12/20/24 12/20/24 History
levothyroxine 88 mcg tablet 88 mcg PO DAILY@0600 12/20/24 12/20/24 History
prednisone 1 mg tablet 2 mg PO Q48H INFLAMMATION 12/20/24 12/20/24 History
Review of Systems
-
History Source: Patient
Constitutional: No Symptoms
Physical Exam
Vital Signs
Temp Pulse Resp BP Pulse Ox
97.4 F 76 18 144/64 100
12/22/24 11:16 12/22/24 12:02 12/22/24 12:02 12/22/24 12:02 12/22/24 12:02
Lab Results
12/22/24 03:23
12/22/24 03:23
GEN: No distress, awake, Ox3
HEENT: supple, anicteric, mmm
LUNGS: CTA, no wheezes/rales
CV: Reg, S1/S2, no murmur
ABD: soft, BS+, NT/ND
EXT: No edema
NEURO: Gross non-focal
SKIN: No rash, left groin with gauze dressing covered with clear Tegaderm, no blood on dressing, bilateral groins with bruising
Impression / Plan
-
PCP: Dr. Sena
Primary Lathe Machinist: Gonzales Bullock
Impression:
Recurrent hematuria
acute blood loss anemia
Paroxysmal to persistent atrial fibrillation
-PVI pulsed field 12/19/2024
-cardioversions 11/10/2024, 05/27/2024, 11/20/2023
Atypical atrial flutter
Chronic cystitis and urinary retention
s/p TURP and TURBT 09/13/23
on Eliquis OAC, but on hold due to hematuria
Chronic HFpEF
mod-severe MR
h/o GIB
Anemia
FORREST on CKD 3b
Spinal osteomyelitis 2021 treated at [facility]
SIADH
Essential hypertension
HLD
Pemphigus vulgaris
Ankylosing spondylitis
Nephrolithiasis
Osteoarthritis/osteoporosis
GERD
SHRUTHI 06/15/2023: Normal LV size, thickness, systolic function, LVEF 60 to 65%, normal RV size and function, severely dilated left atrium and mildly dilated right atrium, posterior leaflet is mildly restricted P2/P3, moderate to severe MR, pulmonary
vein flow reversal, moderate TR, moderate aortic plaque
Echo 03/18/2024: Normal LV size and function. LVEF 55 to 60%, stage II diastolic dysfunction, dilated LA, moderate MR, mild TR, normal RV size and function
Echo 02/14/2024: Mild LVH, LVEF 55 to 60%, stage III diastolic dysfunction, mild to moderate MR, dilated LA, mild AI
Lexiscan nuclear stress test 01/09/2025 normal perfusion with no fixed or reversible defects
EKG: NSR, can't r/o inf MA. QTc 464 ms
Plan:
--Status post pulsed field PVI 12/19/2024
-Now with hematuria and 3 g drop in hemoglobin with current hemoglobin 7.4 12/18/2024
-Also with postprocedure ooze at left femoral venous access site could contribute to current anemia. Left groin site without active bleeding.
-Remains in normal sinus rhythm, continue telemetry monitoring
-Continue amiodarone
-Getting repeat CBC this afternoon with plan for transfusion if hemoglobin less than 7.
-If gets blood would give dose of Lasix afterwards given his history of heart failure with preserved EF.
-Patient on Lasix 20 PRN in outpt setting takes 2-3 times a week for edema
-Last echo 02/2024 EF 55 to 60%, mod MR
-Appreciate urology recommendations, resume Eliquis when felt to be safe from standpoint.
-FORREST on admission, with creatinine 2.5, now 1.2 12/22/2024
-BP stable, continue outpt Amlodipine
-continue home dose Atorvastatin, LDL 63 08/19/2024
-discussed with nurse.
Data Reviewed
-
EKG: Tracing Personally Visualized and interpreted
Medical Tests (Nuc Med, Echo etc): Image Personally Visualized and interpreted
Labs: Labs Reviewed by me
--- NOTE | 2024-12-22 13:58 | W.PN.HOSP.TC ---
Addendum entered and electronically signed by Brie Vallejo MD 12/22/24 14:40:
I saw and evaluated the patient independently. I reviewed the resident�s note and agree with findings and plan as documented by Dr. Burgess.
GENERAL: well developed, well nourished, male in no apparent distress
HEENT: NC/AT --no O2 requirements
HEART: regular rate and rhythm, +S1, +S2
LUNGS : clear to auscultation bilaterally
ABDOM: soft, nontender, nondistended, + bowel sounds
EXT: no cyanosis, clubbing, or edema
NEUROLOGIC: grossly intact
: bilateral groin with ecchymosis--norris cath removed--pt voiding on his own
Gross Hematuria with clot retention--possibly due to acute on chronic cystitis?--exacerbated by Eliquis--HOLD--apprec urology--s/p CBI with norris removal and successful voiding post norris removal--urine culture no growth--can stop rocephin,
leukocytosis resolved
Acute Blood Loss Anemia on Anemia of Chronic Disease exacerbated by Eliquis--likely from bleeding AND oozing from groin (groin hematoma)--Hbg downtrend, 7.4 today-- recheck H&H-- Consented for blood product if needed-- Will transfuse if hgb <7.
FORREST on GZN2s--[id number] of both pre and post renal--resolved with norris, CBI, IVF--all stopped--follow creat
Paroxysmal Atrial Fibrillation--s/p PVI Ablation 12/19/24--was instructed by cardiology to continue Eliquis despite gross hematuria--Eliquis now on hold--consult cards--cont amiodarone--Local care / reinforce dressing at L groin.
Diarrhea unclear cause--C diff, shiga tox and Norovirus negative-- Salmonella/Campylobacter pending.
Hyponatremia--unclear cause--follow
Essential HTN-- cont Norvasc with holding parameters.
Hypothyroidism-- cont Levothyroxine
BPH-- cont dutasteride.
DVT proph
code status--FULL CODE
Original Note:
Today's Communication/Plan
-
Voiding trial, IVF, await urine culture, potentially restart Eliquis tomorrow
Assessment / Plan
Assessment / Plan
84y M with A-Fib s/p PVI ablation (12/19/24), BPH and cystitis who presents to ED complaining of gross hematuria, weakness and fall at home.
Gross Hematuria due to acute on chronic cystitis:
-urology following
-CBI discontinued, norris removed, voiding trial
-exacerbated by Eliquis which is on hold. Minor pink color of urine. Small amount of blood/clot from penis. Will likely continue Eliquis tomorrow
-Rocephin day 3
-await UCx
-leukocytosis resolved
Acute Blood Loss Anemia on Anemia of Chronic Disease:
-due to combination groin hematoma and hematuria. while on Eliquis (which is on hold)
-Hbg downtrend, 7.4 today. Trend H&H. Consented to blood product if needed. Will transfuse if hgb <7.
FORREST on CKD3a:
-pre and post renal
-Creatinine back to baseline 1.2
-cont IVFs, norris discontinued, voiding trial
Paroxysmal Atrial Fibrillation:
-s/p PVI Ablation 12/19/24
-cardiology c/s
-currently in SR
-cont amio
-holding Eliquis with hematuria
-Local care / reinforce dressing at L groin.
Diarrhea:
C diff, shiga tox and Norovirus negative. Salmonella/campylobacter pending.
Hyponatremia:
Likely secondary to CBI.
-Mild, follow BMP
Other problems:
Essential HTN: cont Norvasc with holding parameters.
Hypothyroidism: cont Levothyroxine
BPH: cont dutasteride.
FULL/SCDs
Anticipated Discharge: Within 24 hours
Subjective/Interval History
-
Date of Service: December 22, 2024
Pt feels 'stronger'
Objective Data
-
Labs:
Laboratory Results
12/22/24
03:23
WBC 8.7
Hgb 7.4 L
Hct 22.8 L
Plt Count 149
Sodium 134 L
Potassium 3.9
Chloride 111 H
Carbon Dioxide 22
BUN 24 H
Creatinine 1.2
Glucose 94
Calcium 7.9 L
Vital Signs:
Vital Signs
Temp Pulse Resp BP Pulse Ox
97.4 F 76 18 144/64 100
12/22/24 11:16 12/22/24 12:02 12/22/24 12:02 12/22/24 12:02 12/22/24 12:02
I&O
12/21/24 12/22/24 12/23/24
06:59 06:59 06:59
Intake Total 1680 / 1680
Output Total 1675 / 1675 2200 / 2200 200 / 200
Balance -1675 / -1675 -520 / -520 -200 / -200
Review of Systems
-
History Source: Patient
Constitutional: Denies Fatigue
Abdomen/GI: Denies Abdominal Pain
Genitourinary: Reports Other (mild hematuria); Denies Incontinence or Difficulty Voiding
Hematologic / Lymphatic: Reports Bleeding
Physical Exam
-
General: Well Developed, Well Nourished, No Apparent Distress and Comfortable
Respiratory: Clear to Auscultation and Non Labored Respirations; Negative Wheezes, Rales, Rhonchi or Crackles
Cardiac: Regular Rhythm and S1/S2; Negative Murmur, Rub or Calf Tenderness
GI: Soft, Nontender and Nondistended
Musculoskeletal: No Clubbing, No Cyanosis and No Edema
Skin: Warm and Dry
Neuro: Awake, Alert and Oriented
Hematologic / Lymphatic: Other (ecchymosis over left suprapubic area, left scrotum, left upper medial thigh)
Psych: Calm
--- NOTE | 2024-12-22 14:26 | PTCARENOTE ---
Pt sitting OOB all morning into afternoon . eating hid meals Type and screen draWN
--- NOTE | 2024-12-22 15:33 | CM ---
Patient seen at bedside with physicians. Patient stated that he would like to get up and move around. Patient pending PT/OT assessment. CM will continue to follow for discharge planning needs. CM will continue to follow for discharge planning needs.
Plan; SNF vs home with [facility] will need updated DIOMEDES referrals
--- NOTE | 2024-12-22 16:02 | PTCARENOTE ---
Ptrefusing to be tx, wants to speak to my superior, who spoke with him he is still refusing. Nursing airline managerial supervisor aware
[2024-12-22 16:42] LABS: Hematocrit 24.4 % (39.0-52.0); Hemoglobin 8.2 g/dL (13.0-18.0)
--- NOTE | 2024-12-22 16:48 | PTCARENOTE ---
Pt given result of H/H telling him it was good news that he would not need a transfusion Pt became irrate demanding to see DR Vallejo'get her here now' TT Dr Vallejo.
--- NOTE | 2024-12-22 17:08 | PTCARENOTE ---
Pt to stay in IMU tonite
--- NOTE | 2024-12-22 17:09 | PTCARENOTE ---
Dr Vallejo called and message given to pt from Dr Vallejo, Pt told me he called DR Wallace who will see him in the am . Pt dis have a bloody urine in urinal
[2024-12-22] MEDS: FOLTX 1 TABLET PO (17:54)
[2024-12-22] MEDS: PACERONE PO (21:26)
[2024-12-22] MEDS: OCUVITE SOFTGEL 1 CAP PO (21:28)
[2024-12-22] MEDS: VALIUM 5 MG PO (21:28)
[2024-12-22] MEDS: NORVASC 2.5 MG PO (21:34)
[2024-12-22] MEDS: PROTONIX 40 MG PO (21:34)
[2024-12-22] MEDS: ROCEPHIN 1000 MG IV (21:36)
[2024-12-22] MEDS: STERILE WATER FOR INJECTION 10 ML IV (21:36)
--- NOTE | 2024-12-22 23:00 | PTCARENOTE ---
Pt is aaox3. NSR on monitor. 98% on RA. VS and assessment as documented. Educated pt on MIKE medications and answered all of his questions. Pt requested Tylenol 1000mg he typically takes HS at home for his chronic lower back pain. This RN offered pt
his PRN 650mg Tylenol but he refused. Notified [facility] and received Rx for Tylenol (see DEC). Hygiene completed. Pt resting in bed with call morrow in reach.
[2024-12-22] MEDS: TYLENOL 1000 MG PO (23:08)
[2024-12-23] VITALS (15 sets, daily range): BP systolic 124–174; BP diastolic 53–98; BMI 28.1
[2024-12-23] MEDS: SYNTHROID 88 MCG PO (05:30)
[2024-12-23 06:11] LABS: Hematocrit 23.1 % (39.0-52.0); Hemoglobin 7.5 g/dL (13.0-18.0); Mean Corp Hgb Conc. 32.5 g/dL (33.0-37.0); Mean Corpuscular Hgb 32.6 pg (27.0-31.0); Mean Corpuscular Volume 100.4 fL (80.0-94.0); Mean Platelet Volume 10.8 fL (7.4-10.4); Platelet Count 144 10^3/uL (130-400); Red Cell Dist. Width 15.2 % (11.5-14.5); White Blood Cell Count 7.9 10^3/uL (4.8-10.8)
[2024-12-23 06:14] LABS: Blood Urea Nitrogen 15 mg/dl (9-20); Carbon Dioxide 23 mmol/L (22-30); Chloride 107 mmol/L (98-107); Estimated Creatinine Clearance 48 ml/min; Glucose 93 mg/dl (70-99); Magnesium 2.1 mg/dl (1.6-2.3); Phosphorus 2.3 mg/dl (2.5-4.5); Potassium 3.6 mmol/L (3.5-5.1); Sodium 138 mmol/L (135-145); eGFR > 60.00
[2024-12-23] MEDS: DELTASONE 2 MG PO (07:44)
[2024-12-23] MEDS: FLOMAX 0.4 MG PO (07:44)
[2024-12-23] MEDS: FLORASTOR 250 MG PO (07:45)
[2024-12-23] MEDS: PROTONIX 40 MG PO (07:45)
[2024-12-23] MEDS: PROSCAR 5 MG PO (07:45)
[2024-12-23] MEDS: PACERONE 200 MG PO (07:45)
[2024-12-23] MEDS: LIPITOR 10 MG PO (07:47)
[2024-12-23] MEDS: OCUVITE SOFTGEL 1 CAP PO (07:47)
--- NOTE | 2024-12-23 08:21 | W.PN.UPDATE ---
Update Note
Progress Note Update
Patient seen and examined this morning
Also phone conversation with patient's this a.m. and discussed weekend events with Dr. Barksdale. Communicated with Dr. Khan who will evaluate the patient this morning.
Sinus rhythm on telemetry.
His renal function thankfully has normalized.
Hemoglobin this morning is noted at 7.5.
He is back on his PPI at twice daily.
I lowered his amiodarone to once daily.
Physical exam:
Alert and orient x 3
Nonfocal neurologically
JVP 6
Cor regular
Sinus rhythm on telemetry
Groin exam deferred as there is a dressing in the left groin without blood on the dressing
No extremity edema
Plan/Recommendation:
The risk of thrombus formation of the left atrium is highest in the first 5 to 7 days post PVI and discussed with Dr. Khan timing of reinitiation perhaps of Eliquis 2.5 mg twice daily at a minimum. He will let us know regarding timing. Will
defer to his expertise regarding initiation timing. Obviously he may also require urologic evaluation and hence why we have been holding his oral anticoagulation. I do not think that post PFA hemolysis is a major factor given the fact that we
delivered less than 60 pulsed field ablation lesions. His bilateral groin ultrasounds demonstrated no hematoma or pseudoaneurysm and I do not think that his ecchymosis is responsible for the anemia. I took time to answer all questions of patient
and and we will follow daily with the hospitalist team. As noted in my Sunday evening post procedure note patient and I discussed continuing oral anticoagulation given postablation stroke risk and he was instructed to return to the emergency
room if he had increased urinary bleeding or blood clots. He did follow instructions and returned on Sunday so that we could address his post procedure hematuria. Ideally we can resume Eliquis as soon as safe per urology.
--- NOTE | 2024-12-23 09:07 | PTCARENOTE ---
Patient has light red tinged urine. Showed it to Dr. Khan. Patient spoke to doctor about plan of care.
[2024-12-23 09:23] LABS: Reticulocyte Count 1.8 % (0.4-2.8)
--- NOTE | 2024-12-23 09:27 | W.PN.URO.CBU ---
Today's Communication / Plan
-
Patient could be discharged home today if his hematuria does not worsen, but Eliquis cannot be resumed until urine clears visibly of blood
Assessment / Plan
-
hx of bph and chronic cystitis
gross hematuria
Urine culture negative
on flomax and proscar
would not restart eliquis today given drop in hgb and ongoing gross hematuria
Diagnosis
-
Date of Service: December 23, 2024
-
Patient Diagnosis:
gross hematuria
History of chronic hemorrhagic cystitis
Acute blood loss anemia
Subjective
-
Anxious
No dysuria
No pelvic pain
Objective
-
Vital Signs
Temp Pulse Resp BP Pulse Ox
97.6 F 72 16 131/76 98
12/23/24 07:41 12/23/24 08:00 12/23/24 08:00 12/23/24 08:00 12/23/24 07:42
Intake and Output
12/22/24 12/23/24 12/24/24
06:59 06:59 06:59
Intake Total 1680 / 1680 120 / 120
Output Total 2200 / 2200 500 / 500
Balance -520 / -520 -500 / -500 120 / 120
Intake:
Oral fluids 480 / 480 120 / 120
IV fluids (Total) 1200 / 1200
Output:
Urine, Suarez 850 / 850
Urine, Voided 500 / 500
True Urine Output from CBI 1350 / 1350
Other:
Number of approximated MODERATE 1
amounts of urine
Laboratory Results
12/23/24 05:32
12/23/24 05:32
Review of Systems
-
Constitutional: Fatigue
Respiratory: No Symptoms
Cardiac: No Symptoms
Abdomen/GI: No Symptoms
: Bleeding
Neurological: No Symptoms
Physical Exam
-
General - well nourished, no acute distress
Abdomen - soft, non-tender, no CVAT
Genitalia - normal
Counseling
-
Discussed management with cardiology and hospitalist
[2024-12-23] MEDS: TYLENOL 650 MG PO (09:34)
--- NOTE | 2024-12-23 09:49 | W.PN.CARDCBS ---
Addendum entered and electronically signed by Gonzales Bullock MD 12/23/24 10:59:
Please note. Furosemide dosing listed below as recommended is incorrect.
Proper dosing of furosemide should be 20 mg p.o. as needed for lower extremity edema.
Original Note:
Today's Communication / Plan
-
Okay for discharge
See plan for recommended meds and follow-up
Impression / Plan
-
PCP: Dr. Sena
Primary Front Desk Person: Gonzales Bullock
Impression:
Recurrent hematuria
acute blood loss anemia
Paroxysmal to persistent atrial fibrillation
-PVI pulsed field 12/19/2024
-cardioversions 11/10/2024, 05/27/2024, 11/20/2023
Atypical atrial flutter
Chronic cystitis and urinary retention
s/p TURP and TURBT 09/13/23
on Eliquis OAC, but on hold due to hematuria
Chronic HFpEF
mod-severe MR
h/o GIB
Anemia
FORREST on CKD 3b
Spinal osteomyelitis 2021 treated at [facility]
SIADH
Essential hypertension
HLD
Pemphigus vulgaris
Ankylosing spondylitis
Nephrolithiasis
Osteoarthritis/osteoporosis
GERD
SHRUTHI 06/15/2023: Normal LV size, thickness, systolic function, LVEF 60 to 65%, normal RV size and function, severely dilated left atrium and mildly dilated right atrium, posterior leaflet is mildly restricted P2/P3, moderate to severe MR, pulmonary
vein flow reversal, moderate TR, moderate aortic plaque
Echo 03/18/2024: Normal LV size and function. LVEF 55 to 60%, stage II diastolic dysfunction, dilated LA, moderate MR, mild TR, normal RV size and function
Echo 02/14/2024: Mild LVH, LVEF 55 to 60%, stage III diastolic dysfunction, mild to moderate MR, dilated LA, mild AI
Lexiscan nuclear stress test 01/09/2025 normal perfusion with no fixed or reversible defects
EKG: NSR, can't r/o inf UT. QTc 464 ms
Plan:
Despite hematuria, anemia, and recent PVI, he appears stable.
His creatinine has dropped back to 1.
Appreciate help of urology.
Plan will be to restart Eliquis 2.5 mg twice daily when urine is completely clear and then increase Eliquis to 5 mg twice daily in 1 week if stable.
We will check a CBC on . Patient will call us when his urine is clear to get okay to begin Eliquis.
We will arrange for cardiac follow-up.
Recommended cardiac medications at discharge:
Eliquis 2.5 mg twice daily when urine clears, then in 1 week 5 mg twice daily
Atorvastatin 10 mg a day
Amlodipine 2.5 mg at bedtime
Furosemide 40 mg a day
Amiodarone 200 mg a day
CBC on
Progress Note - Front Desk Person
Subjective
Date of Service: December 23, 2024:
He feels better. Urine is light pink.
Current medications: Albuterol as needed, ceftriaxone, atorvastatin 10 mg a day, amlodipine 2.5 at bedtime, diazepam 5 mg at bedtime, levothyroxine 88 mcg a day, prednisone 2/3 mg daily alternating, finasteride 5 mg a day, tamsulosin 0.4 mg daily,
pantoprazole 40 twice daily, folate, amiodarone 200 mg a day
131/76, pulse 72, respirations 16, afebrile, 98, weight is 74.1 kg, down 0.4 kg, head neck exam unremarkable, lungs are clear,, soft apical murmur abdomen benign extremities without clubbing cyanosis or edema
Hemoglobin 7.5, platelets are 144, BUN and creatinine are 15 and 1.0, creatinine had been 2.5
Objective
Labs:
12/23/24 05:32
12/23/24 05:32
Labs
Hgb 7.5 g/dL (13.0-18.0) L 12/23/24 05:32
Hct 23.1 % (39.0-52.0) L 12/23/24 05:32
Plt Count 144 10^3/uL (130-400) 12/23/24 05:32
PT 15.9 Sec (11.4-14.6) H 12/20/24 14:13
INR 1.24 12/20/24 14:13
APTT 28.0 Sec (23.4-35.0) 12/20/24 14:13
Sodium 138 mmol/L (135-145) 12/23/24 05:32
Potassium 3.6 mmol/L (3.5-5.1) 12/23/24 05:32
BUN 15 mg/dl (9-20) 12/23/24 05:32
Creatinine 1.0 mg/dL (0.7-1.3) 12/23/24 05:32
Glucose 93 mg/dl (70-99) 12/23/24 05:32
Vital Signs and I&O:
Vital Signs
Temp Pulse Resp BP Pulse Ox
36.4 C 72 16 131/76 98
12/23/24 07:41 12/23/24 08:00 12/23/24 08:00 12/23/24 08:00 12/23/24 09:31
Vital Signs
Temp Pulse Resp BP Pulse Ox
36.4 C 72 16 131/76 98
12/23/24 07:41 12/23/24 08:00 12/23/24 08:00 12/23/24 08:00 12/23/24 09:31
Intake & Output
12/21/24 12/22/24 12/23/24 12/24/24
07:59 07:59 07:59 07:59
Intake Total 1680 / 1680 120 / 120
Output Total 1675 / 1675 2200 / 2200 500 / 500
Balance -1675 / -1675 -520 / -520 -500 / -500 120 / 120
Physical Exam
Physical Exam
See above
[2024-12-23] MEDS: LASIX 20 MG PO (10:42)
[2024-12-23 11:15] LABS: Folate > 20.0 ng/ml (2.76-20); Vitamin B12 889 pg/ml (239-931)
--- NOTE | 2024-12-23 11:48 | CM ---
Patient seen at bedside with physicians. Patient plan if for discharge home with no needs. to transport. CM provided IMM for patient to review. CM will continue to follow for discharge planning needs.
Plan; home with family supports.
[2024-12-23 15:23] LABS: Hematocrit 23.1 % (39.0-52.0); Hemoglobin 7.6 g/dL (13.0-18.0)
--- NOTE | 2024-12-23 15:39 | W.PN.HOSP.TC ---
Addendum entered and electronically signed by Brie Vallejo MD 12/23/24 16:29:
I saw and evaluated the patient independently. I reviewed the resident�s note and agree with findings and plan as documented by Dr. Burgess.
GENERAL: well developed, well nourished, male in no apparent distress
HEENT: NC/AT --no O2 requirements
HEART: regular rate and rhythm, +S1, +S2
LUNGS : clear to auscultation bilaterally
ABDOM: soft, nontender, nondistended, + bowel sounds
EXT: no cyanosis, clubbing, or edema
NEUROLOGIC: grossly intact
: bilateral groin with ecchymosis--norris cath removed--pt voiding on his own--urine still red but less so nohemi blood
Gross Hematuria with clot retention--improving--likely due to acute on chronic cystitis?--exacerbated by Eliquis--HOLD--apprec urology--s/p CBI with norris removal and successful voiding post norris removal--urine culture no growth--can stop rocephin,
leukocytosis resolved
Acute Blood Loss Anemia on Anemia of Chronic Disease exacerbated by Eliquis--likely from bleeding AND oozing from groin (groin ecchymosis)--Hbg 7.4, 8.2, 7.5, 7.6-- Consented for blood product if needed-- Will transfuse if hgb <7--not needed
FORREST on MWB7x--[id number] of both pre and post renal--resolved with norris, CBI, IVF--all stopped--follow creat
Paroxysmal Atrial Fibrillation--s/p PVI Ablation 12/19/24--was instructed by cardiology to continue Eliquis despite gross hematuria--Eliquis now on hold--apprec cards--cont amiodarone--Local care/reinforce dressing at L groin.
Diarrhea unclear cause--C diff, shiga tox and Norovirus, Salmonella/Campylobacter all neg
Hyponatremia--unclear cause--follow
Essential HTN-- cont Norvasc with holding parameters.
Hypothyroidism-- cont Levothyroxine
BPH-- cont dutasteride.
DVT proph
code status--FULL CODE
Original Note:
Today's Communication/Plan
-
Discharge planning
Assessment / Plan
Assessment / Plan
84y M with A-Fib s/p PVI ablation (12/19/24), BPH and cystitis who presents to ED complaining of gross hematuria, weakness and fall at home.
Gross Hematuria due to acute on chronic cystitis:
exacerbated by Eliquis which is on hold.
CBI discontinued, norris removed, voiding spontaneously with no difficulty, mild hematuria noted today.
-Rocephin course completed
-Urine Cx negative
-leukocytosis resolved
-Appreciate urology.
Acute Blood Loss Anemia on Anemia of Chronic Disease:
-due to combination groin hematoma and hematuria. while on Eliquis (which is on hold)
-Hbg 7.7 today. Repeat H&H shows hemoglobin has remained stable.
-Normal Reticulocyte, Vit B12 and folate.
FORREST on CKD3a:
-pre and post renal
-Creatinine back to baseline
Paroxysmal Atrial Fibrillation:
-s/p PVI Ablation 12/19/24
-cardiology following, will continue to follow outpatient, determine appropriate time to restart eliquis, holding for now
-currently in SR
-cont amio
-Local care / reinforce dressing at L groin.
Diarrhea:
C diff, shiga tox and Norovirus negative. Salmonella/campylobacter negative
Hyponatremia:
Likely secondary to CBI.
-Resolved
Other problems:
Essential HTN: cont Norvasc with holding parameters.
Hypothyroidism: cont Levothyroxine
BPH: cont dutasteride.
FULL/SCDs
Anticipated Discharge: Today
Subjective/Interval History
-
Date of Service: December 23, 2024
No acute events overnight
Objective Data
-
Labs:
Laboratory Results
12/23/24 12/23/24
05:32 15:15
WBC 7.9
Hgb 7.5 L 7.6 L
Hct 23.1 L 23.1 L
Plt Count 144
Sodium 138
Potassium 3.6
Chloride 107
Carbon Dioxide 23
BUN 15
Creatinine 1.0
Glucose 93
Calcium 8.0 L
Vital Signs:
Vital Signs
Temp Pulse Resp BP Pulse Ox
97.5 F 76 20 124/53 77
12/23/24 11:06 12/23/24 14:20 12/23/24 14:20 12/23/24 14:20 12/23/24 14:20
I&O
12/22/24 12/23/24 12/24/24
06:59 06:59 06:59
Intake Total 1680 / 1680 120 / 120
Output Total 2200 / 2200 500 / 500
Balance -520 / -520 -500 / -500 120 / 120
Review of Systems
-
History Source: Patient
Cardiac: Denies Chest Pain or Palpitations
Genitourinary: Reports Bleeding; Denies Dysuria or Difficulty Voiding
Physical Exam
-
General: Well Developed, Well Nourished, No Apparent Distress and Comfortable
HEENT: Normocephalic, Atraumatic and Moist Mucous Membranes
Respiratory: Clear to Auscultation and Non Labored Respirations; Negative Wheezes, Rales, Rhonchi or Crackles
Cardiac: Regular Rhythm and S1/S2; Negative Murmur, Rub or Calf Tenderness
GI: Soft, Nontender, Nondistended and Normal Bowel Sounds
Skin: Warm and Dry
Neuro: Awake, Alert and Oriented
Psych: Calm
--- NOTE | 2024-12-23 15:58 | CM ---
Addendum entered by Amira Hartman 12/23/24 16:12:
[facility] / fax
Original Note:
Patient seen at bedside. Patient for discharge home today with [facility] pt/ot. Patient completed IMM and gave to nurse, Patient spoke with CM and gave patient phone. Patient confirmed he wanted [facility] to restart. CM will continue to follow
for discharge planning needs.
PLan; home with and referral to [facility]
--- NOTE | 2024-12-23 17:07 | W.DCSUMMARY ---
Addendum entered and electronically signed by Brie Vallejo MD 12/23/24 18:07:
Read, reviewed, and agree. See same day progress note for additional details. Time spent coordinating care, DC planning, review of DC plan of care with resident, transition of care, review of records in EMR, med rec, consults, notes, d/w
consultants, nursing, family, and CM = 39 minutes
Original Note:
Discharge Summary
Discharge Data
Date of Admission: 12/20/24
Date of Discharge: 12/23/24
-
Pending Results: No
Hospital Course
Discharging Physician : Bridget Burgess MD; Brie Vallejo MD.
Disposition : Home with home care
Primary care physician : Sin Sena MD.
Principal Discharge diagnosis : Gross hematuria, acute blood loss anemia, Acute kidney injury, diarrhea, hyponatremia,
Chronic Discharge diagnosis : Heart failure with preserved ejection fraction, asthma, paroxysmal Afib, Essential hypertension, hypothyroidism, benign prostatic hyperplasia, chronic hemorrhagic cystitis
Hospital Course :
HPI:
84y M with above PMH including paroxysmal A-Fib s/p PVI ablation on 12/19/24, who presents to ED on 12/20/24 complaining of gross hematuria, weakness and fall at home. Patient noted that he had gross hematuria following this procedure. He was
discharged to home with instructions to resume his Eliquis at night. He took that night's dose, and the next morning before he came to the ED for persistent hematuria. Prior to arrival, patient slipped climbing into bed and fell to the floor. He
denied any prodrome of lightheadedness or dizziness, fevers / chills, or N/V. He did not strike his head or lose consciousness. Patient was unable to get up unassisted and his neighbors were called for help. He also complained of non-bloody
diarrhea with fecal incontinence x 3 days which he attributed to being nervous about the upcoming PVI ablation. He did take imodium at home and his symptoms improved.
In the ED, BP was moderately elevated, with other vitals stable. WBC 16.4, Hgb 10.2, Na 132, Cr 2.5.
3-way Suarez was placed and CBI was initiated with red colored urine. He was started on Zosyn and Vancomycin in the ED. Eliquis was held.
Antibiotic therapy was converted to ceftriaxone only, which was continued for 3 days with negative urine culture. Cardiology and urology specialists were consulted. CBI was discontinued after successful voiding trail on 12/22. There was minor
hematuria until discharge with no dysuria. Hemoglobin downtrend noted but stabilized at 7.6 by discharge. Hyponatremia resolved. Diarrhea continued to improve, and stool studies were negative for norovirus, with negative stool cultures. He was
deemed stable for discharge with the following recommendations:
-Reach out to your urologist, Dr. Khan daily to discuss urine appearance and next steps. Follow up shortly with his office.
-Follow up with fruit grader operator Dr. Underwood's office shortly. You will also get a CBC blood test in two days.
-Do not continue taking Eliquis until your doctors say you should.
-Follow up shortly with your PCP.
-Take Flomax 0.4mg daily
Important imaging findings :
Groin ultrasound 12/20/2024: Unremarkable duplex examination of the left groin. No evidence of pseudoaneurysm or hematoma bilateral groins.
Discharge Plan
-
Patient Disposition: Home with Home Care
Discharge Diagnosis/Procedures: Hematuria
Condition: Fair
Diet: Low Sodium
Activity: As tolerated
Driving Restrictions: As prior to admission
Bathing Restrictions: None
Blood Work: Recheck CBC within in two days with your fruit grader operator
Other Services: PT
Specialty Instructions: Weigh Daily- Call MD for wt gain/loss 3 lbs overnight/5 lbs in 1 week
Referrals:
Howard Underwood MD [Active] - (as directed)
Sin Snea MD [Family Provider] - in less than 1 week
Samm Khan MD [Active] - in less than 1 week
Additional Discharge Medication Instructions: Reach out to your urologist, Dr. Khan daily to discuss urine appearance and next steps. Follow up shortly with his office.
Follow up with Dr. Underwood's office shortly.
Do not continue taking Eliquis until your doctors say you should.
Prescriptions:
New
tamsulosin 0.4 mg Capsule
0.4 mg PO DAILY Qty: 30 0RF
Continued
atorvastatin 10 MG tablet
10 mg PO DAILY
vitamin B complex Tablet
1 tab PO QPM
albuterol sulfate 90 mcg/actuation Hfa Aerosol Inhaler
2 puff INHALATION R Q4HPRN PRN (Reason: sob/wheezing)
PreserVision AREDS-2 250-90-40-1 mg Capsule
1 tab PO BID
amlodipine 2.5 mg Tablet
2.5 mg PO HS
pantoprazole [Protonix] 40 mg Tablet,Delayed Release (Dr/Ec)
40 mg PO BID
Saccharomyces boulardii [Florastor] 250 mg Capsule
250 mg PO BID
dutasteride 0.5 mg Capsule
0.5 mg PO DAILY Qty: 0
psyllium husk 0.52 gram Capsule
0.52 g PO DAILYPRN PRN (Reason: constipation)
Prolia 60 mg/mL Syringe
60 mg SC [id number]
methen-sod phos-meth blue-hyos [Urogesic-Blue] 81.6-40.8-0.12 mg Tablet
1 tab PO BID PRN (Reason: Urinary Issue)
prednisone 1 mg Tablet
3 mg PO Q48H
Patient Comments:
Alternates 2 nand 3 mg
fexofenadine 60 mg Tablet
60 mg PO BID PRN (Reason: itching)
fluticasone propion-salmeterol [Advair Diskus] 500-50 mcg/dose Blister With Device
1 inh INHALATION BID PRN (Reason: wheezing)
furosemide 20 mg Tablet
20 mg PO DAILY PRN (Reason: Swelling Left Foot)
diazepam [Valium] 5 mg Tablet
5 mg PO HS
levothyroxine 88 mcg tablet
88 mcg PO DAILY@0600
prednisone 1 mg Tablet
2 mg PO Q48H
amiodarone 200 mg tablet
200 mg PO DAILY Qty: 0 0RF
Held
Eliquis 2.5 mg Tablet
2.5 mg PO BID 30 Days Qty: 60 0RF
Hold Instructions: Resume only after your doctor approves of this
Discharge Orders:
Discharge Patient (As Directed); Ordered 12/23/24
Ordered By: Bridget Burgess
Discharge Date and Time
Discharge Date/Time: 12/23/24 16:44
Print Language: IRAQI
== END 2024-12-23 16:44 | disposition home health service (06) | DRG 690 ==
LOC: IMU 21:07
PROVIDERS: Emergency Medicine; Internal Medicine; Student in an Organized Health Care Education/Training Program; ADMITTING PHYSICIAN Hospitalist; ATTENDING PHYSICIAN Internal Medicine; CONSULT PHYSICIAN Internal Medicine Cardiovascular Disease; CONSULT PHYSICIAN Specialist; EMERGENCY PHYSICIAN Emergency Medicine; FAMILY PHYSICIAN Internal Medicine Geriatric Medicine
DX: N30.01 Acute cystitis with hematuria (principal); I13.0 Hypertensive heart and chronic kidney disease with heart failure and stage 1 through stage 4 chronic kidney disease, or unspecified chronic kidney disease; D62 Acute posthemorrhagic anemia; I48.19 Other persistent atrial fibrillation; I50.32 Chronic diastolic (congestive) heart failure; I48.4 Atypical atrial flutter; E22.2 Syndrome of inappropriate secretion of antidiuretic hormone; D68.32 Hemorrhagic disorder due to extrinsic circulating anticoagulants; N17.9 Acute kidney failure, unspecified; I25.10 Atherosclerotic heart disease of native coronary artery without angina pectoris; N18.32 Chronic kidney disease, stage 3b; E03.9 Hypothyroidism, unspecified; E11.22 Type 2 diabetes mellitus with diabetic chronic kidney disease; D63.1 Anemia in chronic kidney disease; N31.9 Neuromuscular dysfunction of bladder, unspecified; R33.8 Other retention of urine; N40.1 Benign prostatic hyperplasia with lower urinary tract symptoms; E78.00 Pure hypercholesterolemia, unspecified; T45.515A Adverse effect of anticoagulants, initial encounter; J45.909 Unspecified asthma, uncomplicated; K21.9 Gastro-esophageal reflux disease without esophagitis; M81.0 Age-related osteoporosis without current pathological fracture; N41.1 Chronic prostatitis; M79.81 Nontraumatic hematoma of soft tissue; Z88.1 Allergy status to other antibiotic agents; Z88.0 Allergy status to penicillin; Z79.01 Long term (current) use of anticoagulants; Z79.52 Long term (current) use of systemic steroids; Z79.890 Hormone replacement therapy; Z79.899 Other long term (current) drug therapy; Z79.51 Long term (current) use of inhaled steroids; Z98.890 Other specified postprocedural states
CPT/HCPCS: 51702; 80048; 80053; 82607; 82746; 83735; 84100; 85014; 85018; 85025; 85027; 85045; 85347; 85610; 85730; 86850; 86900; 86901; 87045; 87046; 87070; 87086; 87324; 87427; 87449; 87798; 93005; 93656; 93657; 93926; 96365; 96367; 96375; 97163; 97166; 99285

== ENCOUNTER → 2024-12-25 10:18 | Outpatient (REF) | payer MEDICARE, BC, SELFPAY ==
[2024-12-25 11:01] LABS: % Basophils 0.2 % (0-2); % Immature Granulocytes 1.5 % (0-0.5); % Lymphocytes 11.6 % (20.5-51.1); % Monocytes 7.9 % (1.7-9.3); % Neutrophils 77.8 % (42.2-75.2); Absolute Eosinophils 0.1 10^3/uL (0-0.7); Absolute Immature Granulocytes 0.2 10^3/uL (0-0.05); Absolute Lymphocytes 1.3 10^3/uL (1.2-3.4); Absolute Monocytes 0.9 10^3/uL (0.1-0.6); Absolute Neutrophils 8.7 10^3/uL (1.4-6.5); Hematocrit 29.5 % (39.0-52.0); Hemoglobin 9.4 g/dL (13.0-18.0); Mean Corp Hgb Conc. 31.9 g/dL (33.0-37.0); Mean Corpuscular Hgb 32.9 pg (27.0-31.0); Mean Corpuscular Volume 103.1 fL (80.0-94.0); Mean Platelet Volume 10.2 fL (7.4-10.4); Nucleated Red Blood Cells % 0 % (-); Platelet Count 205 10^3/uL (130-400); Red Blood Cell Count 2.86 10^6/uL (4.70-6.10); Red Cell Dist. Width 14.9 % (11.5-14.5); White Blood Cell Count 11.2 10^3/uL (4.8-10.8)
== END ==
LOC: REG 10:18
PROVIDERS: ATTENDING PHYSICIAN Internal Medicine Cardiovascular Disease
DX: R31.0 Gross hematuria (principal)
CPT/HCPCS: 36415; 85025

== ENCOUNTER → 2025-01-27 10:48 | Outpatient (REF) | payer MEDICARE, BC, SELFPAY ==
[2025-01-27 12:35] LABS: % Basophils 0.2 % (0-2); % Eosinophils 0.5 % (0-6); % Immature Granulocytes 0.7 % (0-0.5); % Lymphocytes 12.1 % (20.5-51.1); % Monocytes 6.6 % (1.7-9.3); % Neutrophils 79.9 % (42.2-75.2); Absolute Immature Granulocytes 0.1 10^3/uL (0-0.05); Absolute Lymphocytes 1.1 10^3/uL (1.2-3.4); Absolute Monocytes 0.6 10^3/uL (0.1-0.6); Absolute Neutrophils 6.9 10^3/uL (1.4-6.5); Hematocrit 33.2 % (39.0-52.0); Hemoglobin 10.4 g/dL (13.0-18.0); Mean Corp Hgb Conc. 31.3 g/dL (33.0-37.0); Mean Corpuscular Hgb 32.1 pg (27.0-31.0); Mean Corpuscular Volume 102.5 fL (80.0-94.0); Mean Platelet Volume 10.4 fL (7.4-10.4); Nucleated Red Blood Cells % 0 % (-); Platelet Count 215 10^3/uL (130-400); Red Blood Cell Count 3.24 10^6/uL (4.70-6.10); Red Cell Dist. Width 13.8 % (11.5-14.5); White Blood Cell Count 8.7 10^3/uL (4.8-10.8)
[2025-01-27 12:54] LABS: NT-proBNP 312 pg/ml
[2025-01-27 12:55] LABS: Albumin 4.4 g/dl (3.5-5.0); Blood Urea Nitrogen 28 mg/dl (9-20); Calcium 9.8 mg/dl (8.4-10.2); Carbon Dioxide 28 mmol/L (22-30); Chloride 105 mmol/L (98-107); Glucose 104 mg/dl (70-99); Magnesium 2.3 mg/dl (1.6-2.3); Phosphorus 3.2 mg/dl (2.5-4.5); Potassium 4.7 mmol/L (3.5-5.1); Sodium 142 mmol/L (135-145); eGFR > 60.00
[2025-01-27 13:05] LABS: Total Iron Binding Capacity 350 ug/dl (261-462)
[2025-01-27 13:12] LABS: Free T4 1.34 ng/dl (0.78-2.19); Vitamin D, 25-OH*** 37.5 ng/mL (30-80)
[2025-01-27 13:25] LABS: TSH 7.94 uIU/ml (0.47-4.68)
[2025-01-27 13:29] LABS: Ferritin 31.3 ng/ml (17.9-464.0)
[2025-01-27 14:01] LABS: Folate > 20.0 ng/ml (2.76-20); Vitamin B12 > 1000 pg/ml (239-931)
== END ==
LOC: REG 10:48
PROVIDERS: ATTENDING PHYSICIAN Internal Medicine Geriatric Medicine
DX: E03.2 Hypothyroidism due to medicaments and other exogenous substances (principal); Z09 Encounter for follow-up examination after completed treatment for conditions other than malignant neoplasm; N18.32 Chronic kidney disease, stage 3b; E78.2 Mixed hyperlipidemia; I10 Essential (primary) hypertension; E55.9 Vitamin D deficiency, unspecified; N20.0 Calculus of kidney; M81.0 Age-related osteoporosis without current pathological fracture; R00.0 Tachycardia, unspecified; J45.20 Mild intermittent asthma, uncomplicated; K21.9 Gastro-esophageal reflux disease without esophagitis; G47.00 Insomnia, unspecified; I50.32 Chronic diastolic (congestive) heart failure; Z13.89 Encounter for screening for other disorder; R00.2 Palpitations; N40.0 Benign prostatic hyperplasia without lower urinary tract symptoms; I48.0 Paroxysmal atrial fibrillation; E53.8 Deficiency of other specified B group vitamins
CPT/HCPCS: 36415; 80069; 82306; 82607; 82728; 82746; 83550; 83735; 83880; 84439; 84443; 85025

== ENCOUNTER → 2025-04-06 10:24 | Outpatient (REF) | payer MEDICARE, BC, SELFPAY ==
[2025-04-06 11:26] LABS: % Basophils 0.6 % (0-2); % Eosinophils 2.6 % (0-6); % Immature Granulocytes 0.5 % (0-0.5); % Lymphocytes 19.3 % (20.5-51.1); % Monocytes 9.4 % (1.7-9.3); % Neutrophils 67.6 % (42.2-75.2); Absolute Basophils 0.1 10^3/uL (0-0.2); Absolute Eosinophils 0.2 10^3/uL (0-0.7); Absolute Lymphocytes 1.6 10^3/uL (1.2-3.4); Absolute Monocytes 0.8 10^3/uL (0.1-0.6); Absolute Neutrophils 5.5 10^3/uL (1.4-6.5); Hematocrit 35.4 % (39.0-52.0); Hemoglobin 11.1 g/dL (13.0-18.0); Mean Corp Hgb Conc. 31.4 g/dL (33.0-37.0); Mean Corpuscular Hgb 30.1 pg (27.0-31.0); Mean Corpuscular Volume 95.9 fL (80.0-94.0); Nucleated Red Blood Cells % 0 % (-); Platelet Count 221 10^3/uL (130-400); Red Blood Cell Count 3.69 10^6/uL (4.70-6.10); Red Cell Dist. Width 15.3 % (11.5-14.5); White Blood Cell Count 8.2 10^3/uL (4.8-10.8)
[2025-04-06 11:57] LABS: ALT (SGPT) 21 U/L (0-50); AST (SGOT) 24 U/L (17-59); Albumin 4.5 g/dl (3.5-5.0); Alkaline Phosphatase 58 U/L (38-126); Blood Urea Nitrogen 23 mg/dl (9-20); Calcium 9.6 mg/dl (8.4-10.2); Carbon Dioxide 26 mmol/L (22-30); Chloride 105 mmol/L (98-107); Glucose 103 mg/dl (70-99); HDL Cholesterol 65 mg/dl; LDL Cholesterol, Calculated 71 mg/dl; Sodium 140 mmol/L (135-145); Total Bilirubin 0.6 mg/dl (0.2-1.3); Total Cholesterol 167 mg/dl (50-199); Triglyceride 156 mg/dl (10-149); Very Low Density Lipoprotein 31 mg/dl (0-30); eGFR > 60.00
[2025-04-06 12:03] LABS: NT-proBNP 831 pg/ml
[2025-04-06 12:12] LABS: Free T4 1.39 ng/dl (0.78-2.19)
== END ==
LOC: REG 10:24
PROVIDERS: ATTENDING PHYSICIAN Internal Medicine Geriatric Medicine
DX: I42.9 Cardiomyopathy, unspecified (principal); E11.22 Type 2 diabetes mellitus with diabetic chronic kidney disease; M45.9 Ankylosing spondylitis of unspecified sites in spine; N18.32 Chronic kidney disease, stage 3b; E78.2 Mixed hyperlipidemia; I10 Essential (primary) hypertension; E55.9 Vitamin D deficiency, unspecified; M81.0 Age-related osteoporosis without current pathological fracture; R00.0 Tachycardia, unspecified; J45.20 Mild intermittent asthma, uncomplicated; Z13.89 Encounter for screening for other disorder; K21.9 Gastro-esophageal reflux disease without esophagitis; G47.00 Insomnia, unspecified; I50.32 Chronic diastolic (congestive) heart failure; R00.2 Palpitations; N40.0 Benign prostatic hyperplasia without lower urinary tract symptoms; I48.0 Paroxysmal atrial fibrillation; E53.8 Deficiency of other specified B group vitamins; E03.2 Hypothyroidism due to medicaments and other exogenous substances; N30.10 Interstitial cystitis (chronic) without hematuria
CPT/HCPCS: 36415; 80053; 80061; 83880; 84439; 84443; 85025

== ENCOUNTER → 2025-07-10 09:43 | Outpatient (REF) | payer MEDICARE, BC, SELFPAY ==
[2025-07-10 11:09] LABS: Urine Character Clear (Clear)
[2025-07-10 11:20] LABS: Hematocrit 33.5 % (39.0-52.0); Hemoglobin 10.4 g/dL (13.0-18.0); Mean Corp Hgb Conc. 31.0 g/dL (33.0-37.0); Mean Corpuscular Volume 94.9 fL (80.0-94.0); Nucleated Red Blood Cells % 0 % (-); Platelet Count 205 10^3/uL (130-400); Red Cell Dist. Width 15.0 % (11.5-14.5)
[2025-07-10 11:30] LABS: Urine Red Blood Cell 0-2 /HPF (0-2); Urine Urothelial Cell 0-2 /LPF (FEW); Urine White Cell 0-2 /HPF (0-5)
[2025-07-10 11:35] LABS: ALT (SGPT) 17 U/L (0-50); AST (SGOT) 22 U/L (17-59); Albumin 4.2 g/dl (3.5-5.0); Alkaline Phosphatase 55 U/L (38-126); Blood Urea Nitrogen 42 mg/dl (9-20); Calcium 10.0 mg/dl (8.4-10.2); Carbon Dioxide 29 mmol/L (22-30); Chloride 105 mmol/L (98-107); Glucose 106 mg/dl (70-99); HDL Cholesterol 69 mg/dl; LDL Cholesterol, Calculated 58 mg/dl; Potassium 4.7 mmol/L (3.5-5.1); Sodium 140 mmol/L (135-145); Total Protein 6.7 g/dl (6.3-8.2); Very Low Density Lipoprotein 25 mg/dl (0-30); eGFR > 60.00
[2025-07-10 11:49] LABS: Vitamin D, 25-OH*** 41.6 ng/mL (30-80)
[2025-07-10 12:02] LABS: TSH 2.42 uIU/ml (0.47-4.68)
== END ==
LOC: REG 09:43
PROVIDERS: ATTENDING PHYSICIAN Internal Medicine Geriatric Medicine
DX: I42.9 Cardiomyopathy, unspecified (principal); M45.9 Ankylosing spondylitis of unspecified sites in spine; N18.32 Chronic kidney disease, stage 3b; E78.2 Mixed hyperlipidemia; I10 Essential (primary) hypertension; E55.9 Vitamin D deficiency, unspecified; M81.0 Age-related osteoporosis without current pathological fracture; R00.0 Tachycardia, unspecified; J45.20 Mild intermittent asthma, uncomplicated; Z13.89 Encounter for screening for other disorder; K21.9 Gastro-esophageal reflux disease without esophagitis; G47.00 Insomnia, unspecified; I50.32 Chronic diastolic (congestive) heart failure; R00.2 Palpitations; N40.0 Benign prostatic hyperplasia without lower urinary tract symptoms; I48.0 Paroxysmal atrial fibrillation; E53.8 Deficiency of other specified B group vitamins; E03.2 Hypothyroidism due to medicaments and other exogenous substances; N30.10 Interstitial cystitis (chronic) without hematuria
CPT/HCPCS: 36415; 80053; 80061; 81003; 81015; 82306; 83880; 84443; 85025

== ENCOUNTER → 2025-09-11 13:14 | Outpatient (REF) | payer MEDICARE, BC, SELFPAY | LOC: HWRAD 13:14 | PROVIDERS: ATTENDING PHYSICIAN Physician Assistant; FAMILY PHYSICIAN Internal Medicine Geriatric Medicine | DX: M81.0 Age-related osteoporosis without current pathological fracture (principal) | CPT/HCPCS: 77080 ==